=== PATIENT | male | born 1970 | race Two or more races ===

== ENCOUNTER 2025-05-12 17:39 | Inpatient (IN) | payer MEDICAID, OTHER ==
[~2025-05-12] VITALS: Ht 172.7 cm; Wt 79.8 kg
--- NOTE | 2025-05-12 18:24 | ED.PDOC ---
History of Present Illness HPI Comments 55 y/o M is [id number] for c/c fo nonradiating, left sided chest pain, shortness of breath, and nonproductive cough. Patient is a poor historian. He reports a history of CHF and NM in the past. Denies any nausea, vomiting, fever, chills, or further acute symptoms. Chief Complaint: Flu like Time Seen by MD: 18:10 Reviewed Notes: Nurses Notes, Medications, Allergies Allergies: Coded Allergies: NO KNOWN ALLERGIES (Unverified , 05/12/25) Information Source: Patient Mode of Arrival: Wheelchair Severity: Moderate Timing: Hours Duration: Since onset Prehospital treatment: None Past Medical History PAST MEDICAL HISTORY: CHF, NM All Other Systems: Reviewed and Negative (Comprehenesive review of systems are negative unless stated in HPI) Physical Exam General Appearance: Mild Distress, No Apparent Distress, Normal HEENT: Normal ENT Inspection, Pharynx Normal, TMs Normal Neck: Full Range of Motion, Non-Tender, Normal, Normal Inspection Respiratory: Chest Non-Tender, Lungs Clear, No Accessory Muscle Use, No Respiratory Distress, Normal Breath Sounds Cardiovascular: No Edema, No JVD, No Murmur, No Gallop, Normal Peripheral Pulses, Regular Rate/Rhythm Breast Exam: Deferred Gastrointestinal: No Organomegaly, Non Tender, No Pulsatile Mass, Normal Bowel Sounds, Soft Genitalia: Deferred Pelvic: Deferred Rectal: Deferred Extremities: No calf tenderness, Normal capillary refill, Normal inspection, Normal range of motion, Non-tender, No pedal edema Musculoskeletal : Apperance: Normal Neurologic: Alert, allied health instructor II-XII nml as Tested, No Motor Deficits, Normal Affect, Normal Mood, No Sensory Deficits Cerebellar Function: Normal Reflexes: Normal Skin: Dry, Normal Color, Warm Lymphatic: No Adenopathy Was a procedure done? Was a procedure done?: No Differential Dx Considerations may include: NM, PE, ACS, URI, PNA, viral, agnina, anxiety, among others X-Ray, Labs, Meds, VS Vital Signs Date Time Temp Pulse Resp B/P (MAP) Pulse Ox O2 Delivery O2 Flow Rate FiO2 05/12/25 19:24 119 05/12/25 17:46 Room Air* 0 21 05/12/25 17:43 98.0 120 17 115/77 98 98.0 Lab Test 05/12/25 18:37 Range/Units White Blood Count 7.5 4.4-10.8 10^3/uL Red Blood Count 4.19 L 4.5-5.90 10^6/uL Hemoglobin 12.7 L 13.5-17.5 g/dL Hematocrit 38.3 L 41.0-53.0 % Mean Corpuscular Volume 91.4 80.0-100.0 fL Mean Corpuscular Hemoglobin 30.4 28.0-32.0 pg Mean Corpuscular Hemoglobin Concent 33.3 32.0-36.0 g/dL Red Cell Distribution Width 17.7 H 11.8-14.3 % Platelet Count 122 L 140-450 10^3/uL Mean Platelet Volume 8.5 6.9-10.8 fL Neutrophils (%) (Auto) 76.7 37.0-80.0 % Lymphocytes (%) (Auto) 16.4 10.0-50.0 % Monocytes (%) (Auto) 6.6 0.0-12.0 % Eosinophils (%) (Auto) 0.0 0.0-7.0 % Basophils (%) (Auto) 0.3 0.0-2.0 % Neutrophils # (Auto) 5.8 1.6-8.6 10 ^3/uL Lymphocytes # (Auto) 1.2 0.4-5.4 10 ^3/uL Monocytes # (Auto) 0.5 0-1.3 10 ^3/uL Eosinophils # (Auto) 0 0-0.8 10 ^3/uL Basophils # (Auto) 0 0-0.2 10 ^3/uL Nucleated Red Blood Cells 0.3 % Sodium Level 133 L 136-145 mmol/L Potassium Level 4.3 3.5-5.1 mmol/L Chloride Level 97 L 98-107 mmol/L Carbon Dioxide Level 19 L 20-31 mmol/L Anion Gap 17 H 5-15 Blood Urea Nitrogen 40 H 9-23 mg/dL Creatinine 1.34 H 0.700-1.30 mg/dL Glomerular Filtration Rate Calc 63 >90 mL/min BUN/Creatinine Ratio 29.9 H 10.0-20.0 Serum Glucose 145 H 74-106 mg/dL Calcium Level 8.6 L 8.7-10.4 mg/dL Total Bilirubin 3.1 H 0.2-1.0 mg/dL Aspartate Amino Transferase (AST) 3441 H 13-40 U/L Alanine Aminotransferase (ALT) 1446 H 7-40 U/L Alkaline Phosphatase 107 46-116 U/L Troponin I High Sensitivity 57 *H </=54 ng/L Total Protein 7.2 5.7-8.2 g/dL Albumin 4.0 3.2-4.8 g/dL Time of 1ST Reevaluation: 18:40 Reevaluation 1ST: Unchanged Patient Education/Counseling: Diagnosis, Treatment Family Education/Counseling: Diagnosis, Treatment SEPSIS Sepsis Screen Date sepsis recognized/suspect: May 12, 2025 Time Sepsis recognized/suspect: 1739 Recent Procedure: No On Antibiotic Therapy: No Respiratory Rate >20: No Heart Rate >90: Yes Temp<36 C (96.8 F) or >38.3 C: No SBP <90 or MAP <65 mmHG: No New Acute Mental Status Change: No Is the patient on CPAP, BIPAP,: No Physician Orders Chest Xray 1 View (05/12/25 18:17) Acute Hepatitis Panel (05/12/25 19:39) Lactic Acid W/ Reflex Order (05/12/25 19:39) Blood Culture (05/12/25 19:39) Aspirin Tablet (05/12/25 19:45) Sodium Chloride 0.9% (05/12/25 19:45) Piperacillin-Tazob 3.375gm (Zosyn 3.375g (05/12/25 19:45) Vital Signs Date Time Temp Pulse Resp B/P (MAP) Pulse Ox O2 Delivery O2 Flow Rate FiO2 05/12/25 19:24 119 05/12/25 17:46 Room Air* 0 21 05/12/25 17:43 98.0 120 17 115/77 98 98.0 Laboratory Tests Test 05/12/25 18:37 White Blood Count 7.5 10^3/uL (4.4-10.8) Departure 1 Departure Time of Disposition: 19:41 Impression: Primary Impression: Acute coronary syndrome Additional Impressions: Transaminitis Acute renal injury Disposition: ADMITTED INPATIENT Admit to: Tele Condition: Guarded Discharged With: Self Comments 55-year-old male with cough and chest pain. His troponin is slightly elevated at 57. His liver function tests are quite elevated. His creatinine is elevated 1.38. I ordered some IV fluids, IV Zosyn antibiotics, aspirin. Patient will need to be admitted for supportive care and further workup. Critical Care Note Critical Care Time?: Yes (35 min-critical care time only) Critical care comment: Total critical care time: Approximately 36 minutes Due to a high probability of clinically significant, life threatening deterioration, the patient required my highest level of preparedness to intervene emergently and I personally spent this critical care time directly and personally managing the patient. This critical care time included obtaining a history; examining the patient; pulse oximetry; ordering and review of studies; arranging urgent treatment with development of a management plan; evaluation of patient's response to treatment; frequent reassessment; and, discussions with other providers. This critical care time was performed to assess and manage the high probability of imminent, life-threatening deterioration that could result in multi-organ failure. It was exclusive of separately billable procedures and treating other patients. Stability Stability form required: No Heart Score Heart Score: Heart Score Response (Comments) Value History Moderate Suspicious 1 EKG Repolarization Disturb 1 Age 45-64 1 Risk Factors 1 or 2 risk factors 1 Troponin 1-2 x's Normal limit 1 Total 5 I personally scribed for MARIA EUGENIA TOSCANO MD ([email or web address]) on 05/12/25 at 18:24. Electronically submitted by Raul Sanchez [email or web address]). MARIA EUGENIA TOSCANO MD May 12, 2025 18:24
[2025-05-12 18:53] LABS: Hematocrit 38.3 % (41.0-53.0); Hemoglobin 12.7 g/dL (13.5-17.5); Mean Corpuscular Hemoglobin 30.4 pg (28.0-32.0); Mean Corpuscular Volume 91.4 fL (80.0-100.0); Nucleated Red Blood Cells % 0.3 %
[2025-05-12 19:12] LABS: Albumin 4.0 g/dL (3.2-4.8); Alkaline Phosphatase 107 U/L (46-116); Anion Gap 17 (5-15); BUN/Creatinine Ratio 29.9 (10.0-20.0); Potassium 4.3 mmol/L (3.5-5.1); Total Protein 7.2 g/dL (5.7-8.2)
--- NOTE | 2025-05-12 19:23 | DVH ---
EXAM: XY CHEST XRAY 1 VIEW HISTORY: cough, chest pain TECHNIQUE: 1 view of the chest COMPARISON: None FINDINGS/IMPRESSION: LUNGS: No pleural effusion, consolidation, or pneumothorax. Question minimal volume overload MEDIASTINUM: Cardiomegaly. Left anterior chest cardiac device. BONES: No acute osseous abnormality. OTHER: None.
--- NOTE | 2025-05-12 19:26 | ECG ---
[facility] Test Date: 2025-05-12 Test Time: 19:24:30 Pat Name: HERMILA MCMAHAN Department: [facility] ED Patient ID: [id number] Room: 0298T Gender: M Nurse Monitoring: MASSIMO : 1970 Requested By: MARIA EUGENIA TOSCANO Order Number: [id number] Reading MD: Cirilo Kaiser Measurements Intervals [place] Rate: 119 P: 48 [place]: 95 QRS: -77 QRSD: 180 T: 100 QT: 388 QTc: 547 Interpretive Statements Atrial-sensed ventricular-paced rhythm No further analysis attempted due to paced rhythm Electronically Signed On 05-13-2025 13:56:59 PST by Cirilo Kaiser Please click the below link to view image of tracing.
[2025-05-12 19:36] LABS: Blood Urea Nitrogen 40 mg/dL (9-23); Carbon Dioxide 19 mmol/L (20-31); Chloride 97 mmol/L (98-107); Glucose 145 mg/dL (74-106); Sodium 133 mmol/L (136-145)
[2025-05-12 19:37] LABS: Alanine Aminotransferase 1446 U/L (7-40); Bilirubin, Total 3.1 mg/dL (0.2-1.0); Calcium 8.6 mg/dL (8.7-10.4)
[2025-05-12] MEDS: SODIUM CHLORIDE 0.9% 1,000 ML IV ONE (19:45)
[2025-05-12 20:50] LABS: Lactic Acid w/Reflex 4.5 mmol/L (0.4-2.0)
[2025-05-12] MEDS: PIPERACILLIN-TAZOB 3.375GM 100 ML IV ONE (21:30)
[2025-05-12] MEDS ORDERED: DEXTROSE (50%) 50ML SYRG IV PRN (22:15)
[2025-05-12] MEDS ORDERED: MORPHINE SULFATE INJ 2 MG/ml SYRG IV PRN (22:15)
[2025-05-12] MEDS ORDERED: NITROGLYCERIN 0.4 MG SL TAB SL PRN (22:15)
--- NOTE | 2025-05-12 23:13 | DVHHPRES ---
History of Present Illness Resident Creating Document: ASHLEY REEDER History of Present Illness Patient is a 55-year-old male with past medical history of CHF, AL, COPD and neuropathy, presented to [facility] ED with complaint of chest pain. The pain is described as pressure-like, nonradiating left-sided chest pain, associated with nausea, dizziness, shortness of breath, and a nonproductive cough. The patient admits to heavy alcohol use over the past 7 years, with his last binge drinking episode occurring 2 days ago. The patient is using 2 liters of home oxygen. On evaluation in the ED, patient is afebrile, tachycardic, other vitals are stable. Initial labs show significant troponin 57, AST 3441, ALT 1446, creatinine 1.34. Liver US shows coarsened heterogeneous liver with surface nodularity suggesting cirrhosis. The patient was started on CIWA protocol. Patient is admitted for further evaluation and management. Past Medical History CHF, AL, COPD, neuropathy Past Surgical History ICD placement, appendectomy Family History: None Past Social History Smoking: > 5 years. Alcohol: >7 years, heavily. Drug: Methamphetamine. Review of Systems Review of Systems Eyes: No Pain, No Vision change, No Conjunctivae inflammation, No Eyelid inflammation, No Other, No Redness ENT: No Ear pain, No Ear discharge, No Nose pain, No Nose discharge, No Nose congestion, No Mouth pain, No Mouth swelling, No Throat pain, No Throat swelling, No Other Cardiovascular: Chest Pain, No Palpitations, No Orthopnea, No Paroxysmal No Dyspnea, No Edema, No Lt Headedness, No Other Respiratory: Cough, No Dry, Shortness of breath, No SOB with exertion, No Wheezing, No Hemoptysis, No Pleuritic Pain, No Sputum, No Other Gastrointestinal: Nausea, No Vomiting, No Abdominal Pain, No Diarrhea, No Constipation, No Melena, No Hematochezia, No Other Genitourinary: No Dysuria, No Frequency, No Incontinence, No Hematuria, No Retention, No Other Musculoskeletal: No other, No neck pain, No shoulder pain, No arm pain, No back pain, No hand pain, No leg pain, No foot pain Skin: No Rash, No Lesions, No Jaundice, No Bruising, No Other Allergies: Coded Allergies: NO KNOWN ALLERGIES (Unverified , 05/12/25) Exam Vital Signs Vital Signs Date Time Temp Pulse Resp B/P (MAP) Pulse Ox O2 Delivery O2 Flow Rate FiO2 05/12/25 20:55 119 20 97 Room Air 05/12/25 20:55 97.9 114/81 (92) 97.9 05/12/25 17:46 0 21 Exam General Appearance: Cooperative. Well developed. Well nourished. NAD Head Exam: Normal inspection Neck Exam: Normal inspection. Non-tender. Normal alignment Pulmonary/Respiratory: Chest non-tender. Clear bilateral breath sounds, no crackles, no wheezing. Cardiovascular/Chest: Regular rate and rhythm. No murmurs. No JVD. Peripheral Pulses: 2+ Radial (R). 2+ Radial (L). 2+ Pedal (R). 2+ Pedal (L) Abdominal Exam: Normal bowel sounds. Soft. normal abdomen, no visible veins, Nontender. No hepatospenomegaly. No masses Ankle Exam: Negative ankle edema Lower extremities: Negative lower extremity edema Neuro/Mental Status: A&O x4. Coherent. Thoughts/Psych: Normal thought pattern. Appropriate mood and affect. Good judgement and insight Skin Exam: Normal inspection. Normal color. Warm. Dry Labs/Xrays Labs Test 05/12/25 21:56 05/12/25 19:55 05/12/25 18:37 Range/Units Lactic Acid Level 3.7 *H 0.4-2.0 mmol/L White Blood Count 7.5 4.4-10.8 10^3/uL Red Blood Count 4.19 L 4.5-5.90 10^6/uL Hemoglobin 12.7 L 13.5-17.5 g/dL Hematocrit 38.3 L 41.0-53.0 % Mean Corpuscular Volume 91.4 80.0-100.0 fL Mean Corpuscular Hemoglobin 30.4 28.0-32.0 pg Mean Corpuscular Hemoglobin Concent 33.3 32.0-36.0 g/dL Red Cell Distribution Width 17.7 H 11.8-14.3 % Platelet Count 122 L 140-450 10^3/uL Mean Platelet Volume 8.5 6.9-10.8 fL Neutrophils (%) (Auto) 76.7 37.0-80.0 % Lymphocytes (%) (Auto) 16.4 10.0-50.0 % Monocytes (%) (Auto) 6.6 0.0-12.0 % Eosinophils (%) (Auto) 0.0 0.0-7.0 % Basophils (%) (Auto) 0.3 0.0-2.0 % Neutrophils # (Auto) 5.8 1.6-8.6 10 ^3/uL Lymphocytes # (Auto) 1.2 0.4-5.4 10 ^3/uL Monocytes # (Auto) 0.5 0-1.3 10 ^3/uL Eosinophils # (Auto) 0 0-0.8 10 ^3/uL Basophils # (Auto) 0 0-0.2 10 ^3/uL Nucleated Red Blood Cells 0.3 % Sodium Level 133 L 136-145 mmol/L Potassium Level 4.3 3.5-5.1 mmol/L Chloride Level 97 L 98-107 mmol/L Carbon Dioxide Level 19 L 20-31 mmol/L Anion Gap 17 H 5-15 Blood Urea Nitrogen 40 H 9-23 mg/dL Creatinine 1.34 H 0.700-1.30 mg/dL Glomerular Filtration Rate Calc 63 >90 mL/min BUN/Creatinine Ratio 29.9 H 10.0-20.0 Serum Glucose 145 H 74-106 mg/dL Calcium Level 8.6 L 8.7-10.4 mg/dL Total Bilirubin 3.1 H 0.2-1.0 mg/dL Aspartate Amino Transferase (AST) 3441 H 13-40 U/L Alanine Aminotransferase (ALT) 1446 H 7-40 U/L Alkaline Phosphatase 107 46-116 U/L Troponin I High Sensitivity 57 *H </=54 ng/L Total Protein 7.2 5.7-8.2 g/dL Albumin 4.0 3.2-4.8 g/dL SEPSIS Sepsis Screen Date sepsis recognized/suspect: May 12, 2025 Time Sepsis recognized/suspect: 2103 Recent Procedure: No On Antibiotic Therapy: No Respiratory Rate >20: No Heart Rate >90: Yes Temp<36 C (96.8 F) or >38.3 C: No SBP <90 or MAP <65 mmHG: No New Acute Mental Status Change: No Is the patient on CPAP, BIPAP,: No Physician Orders Chest Xray 1 View (05/12/25 18:17) Acute Hepatitis Panel (05/12/25 19:39) Blood Culture (05/12/25 19:39) Admit (05/12/25 22:06) Allergies (05/12/25 22:06) Code Status (05/12/25 22:) Oxygen Per Hour (05/12/25 22:06) Hydrocodone-Acet 5/325mg Tab ([place] 5/32 (05/12/25 22:15) Enoxaparin Sodium (Lovenox) (05/13/25 10:00) Complete Blood Count (05/13/25 04:00) Comprehensive Metabolic Panel (05/13/25 04:00) Cardiac Diet-2gna,Lofat,Lochol (05/13/25 Breakfast) Echo 2d Mode Cardiac Dop (05/12/25 22:06) Condition: Fair (05/12/25 22:) Nitroglycerin Sublingual (Ntrostat Subli (05/12/25 22:15) Oxygen By Nasal Cannula (05/12/25 22:06) Stat Ekg For Chest Pain (05/12/25 22:) Notify Md Of Changes From Base (05/12/25 22:06) Power Shovel Operator Helper For 24 Hours (05/12/25 22:06) Emergency Dysrhythmia Protocol (05/12/25 22:) Rhythm Strips Once Every Shift (05/12/25 22:06) Morphine Sulfate Injection (05/12/25 22:15) B-Type Natriuretic Peptide (05/12/25 22:06) Urinalysis (05/12/25 22:06) Drug Screen (05/12/25 22:06) Aspirin Tablet (05/13/25 10:00) C-Reactive Protein (05/12/25 22:06) Erythrocyte Sedimentation Rate (05/12/25 22:06) Lactic Acid W/ Reflex Order (05/13/25 04:00) Troponin-I Hs (05/12/25 23:06) Magnesium (05/12/25 22:06) Ipratropium Medneb (Atrovent Medneb) (05/13/25 06:00) Covid19 Antigen Adali (05/12/25 ) Rapid Influenza A&B (05/12/25 22:06) Respiratory Culture W/ Gs (05/12/25 22:06) Urine Bacterial Culture (05/12/25 22:06) Glucose Blood (Accu-Chek Comfort Curve T (05/13/25 07:00) Mild Sliding Scale (05/13/25 07:00) Dextrose 50% Syringe (05/12/25 22:15) PTPTT (05/12/25 22:06) Abg W/ Co-Ox (05/12/25 22:06) Ct Ab Pel Wo Con-No Oral Or Iv (05/12/25 22:06) D-Dimer (05/12/25 22:06) Aspirin Tablet (05/12/25 22:15) Electrocardigram (05/12/25 22:06) Levalbuterol Hcl (Xopenex Medneb) (05/13/25 00:00) NS (05/12/25 22:15) Beta-Hydroxybutyrate (05/12/25 22:06) LIVER (05/12/25 22:06) Blood Alcohol (05/12/25 22:06) Osmolality, Serum (05/12/25 22:06) Bilirubin, Direct (05/12/25 22:06) Vital Signs Date Time Temp Pulse Resp B/P (MAP) Pulse Ox O2 Delivery O2 Flow Rate FiO2 05/12/25 20:55 119 20 97 Room Air 05/12/25 20:55 97.9 119 20 114/81 (92) 97 97.9 05/12/25 19:24 119 05/12/25 17:46 Room Air* 0 21 05/12/25 17:43 98.0 120 17 115/77 98 98.0 Laboratory Tests Test 05/12/25 18:37 05/12/25 19:40 05/12/25 21:56 White Blood Count 7.5 10^3/uL (4.4-10.8) Lactic Acid Level 4.5 mmol/L (0.4-2.0) *H 3.7 mmol/L (0.4-2.0) *H Medications Medications Dose Ordered Sig/Demetria Route Start Time Stop Time Status Last Admin Dose Admin Aspirin 81 mg ONCE ONCE PO 05/12/25 19:45 05/12/25 19:46 DC 05/12/25 19:45 81 MG Piperacillin Sod/ Tazobactam Sod 100 ml @ 100 mls/hr ONCE ONCE IV 05/12/25 19:45 05/12/25 20:44 DC 05/12/25 21:30 100 MLS/HR Sodium Chloride 1,000 ml @ 1,000 mls/hr Q1H ONCE IV 05/12/25 19:45 05/12/25 20:44 DC 05/12/25 19:45 1,000 MLS/HR Assessment/Plan Assessment/Plan Acute systolic/diastolic CHF exacerbation Unstable angina Troponin: 57 > 56 Lactic acid: 4.5 > 3.7 Echocardiogram ordered Chest/Abdomen/Pelvis CT : Bilateral ground-glass opacities may represent pulmonary edema. Moderate right and small left pleural effusion. Cardiomegaly Chest X-ray: Cardiomegaly. Left anterior chest cardiac device. Question minimal lung volume overload Lasix 60 MG IV once Lasix 40 MG IV bid Levalbuterol 1.25 MG q6h Ipratropium 0.5 MG q6h pain management with [place] 1 TAB PO q4h and morphine 2MG IV q30m prn Aspirin 81 MG PO once Aspirin 325 MG PO once Nitroglycerin sublingual 0.4 MG SL q5minp prn Magnesium 1g IV once BNP: 2014 Acute compensated/decompensated liver failure Liver cirrhosis Alcohol intoxication Alcohol hepatitis Transaminitis Chest/Abdomen/Pelvis CT : Small volume ascites in the abdomen/ pelvis. Small liver. CIWA score: 11 MELD score: 23 Maddrey score: 49.6, poor prognosis, consider starting prednisone Hepatic panel Liver US: Coarsened heterogeneous liver with surface nodularity suggesting cirrhosis. Ativan 1 mg IV q2h prn Thiamine 100 MG IV once pulmonary edema pleural effusion Chest/Abdomen/Pelvis CT : Bilateral ground-glass opacities may represent pulmonary edema. Moderate right and small left pleural effusion. Cardiomegaly Colonic diverticulosis without acute diverticulitis Chest/Abdomen/Pelvis CT : Colonic diverticulosis without acute diverticulitis. Small volume ascites in the abdomen/ pelvis. Small liver. Type 2 diabetes with hyperglycemia, uncontrolled Mild sliding scale Ruled out DVT Extremity venous study: No right or left femoropopliteal venous thrombosis. Diet: Cardiac DVT prophylaxis: Lovenox 40mg Goals of care: Full code, discussed for >30 minutes on 05/12/25 Plan discussed with patient Plan discussed with Dr. Haines Plan discussed with: Patient My Orders Orders - ASHLEY REEDER RESIDENT Procedure Category Date Status Time Admit ADMIT 05/12/25 Transmitted 22:06 Allergies AMIE 05/12/25 In Process 22:06 Code Status CODE 05/12/25 Transmitted 22:06 Oxygen Per Hour RT 05/12/25 Transmitted 22:06 Hydrocodone-Acet PHA 05/12/25 Transmitted 5/325mg Tab ([place] 22:15 Enoxaparin Sodium PHA 05/13/25 Transmitted (Lovenox) 10:00 Complete Blood Count LAB 05/13/25 Verified 04:00 Comprehensive LAB 05/13/25 Verified Metabolic Panel 04:00 Cardiac DIET 05/13/25 Transmitted Diet-2gna,Lofat,Lochol Breakfast Echo 2d Mode Cardiac US 05/12/25 Transmitted DOP 22:06 Condition: Fair AMIE 05/12/25 In Process 22:06 Nitroglycerin PHA 05/12/25 Transmitted Sublingual (Ntrostat 22:15 Oxygen By Nasal RT 05/12/25 Transmitted Cannula 22:06 Stat Ekg For Chest AMIE 05/12/25 In Process Pain 22:06 Notify Of Changes [facility] 05/12/25 Transmitted From Base 22:06 Power Shovel Operator Helper For [facility] 05/12/25 Transmitted 24 Hours 22:06 Emergency Dysrhythmia [facility] 05/12/25 Transmitted Protocol 22:06 Rhythm Strips Once AMIE 05/12/25 Transmitted Every Shift 22:06 Morphine Sulfate PHA 05/12/25 Transmitted Injection 22:15 B-Type Natriuretic LAB 05/12/25 Transmitted Peptide 22:06 Urinalysis LAB 05/12/25 Transmitted 22:06 Drug Screen LAB 05/12/25 Transmitted 22:06 Aspirin Tablet PHA 05/13/25 Transmitted 10:00 C-Reactive Protein LAB 05/12/25 Transmitted 22:06 Erythrocyte LAB 05/12/25 Transmitted Sedimentation Rate 22:06 Lactic Acid W/ Reflex LAB 05/13/25 Verified Order 04:00 Troponin-I Hs LAB 05/12/25 Transmitted 23:06 Magnesium LAB 05/12/25 Transmitted 22:06 Ipratropium Medneb PHA 05/13/25 Transmitted (Atrovent Medneb) 06:00 Covid19 Antigen Adali LAB 05/12/25 Transmitted Rapid Influenza A&B LAB 05/12/25 Transmitted 22:06 Respiratory Culture MARY ELLEN 05/12/25 Transmitted W/ Gs 22:06 Urine Bacterial MARY ELLEN 05/12/25 Transmitted Culture 22:06 Glucose Blood PHA 05/13/25 Transmitted (Accu-Chek Comfort 07:00 Mild Sliding Scale PHA 05/13/25 Transmitted 07:00 Dextrose 50% Syringe PHA 05/12/25 Transmitted 22:15 PTPTT LAB 05/12/25 Transmitted 22:06 Abg W/ Co-Ox RT 05/12/25 Transmitted 22:06 Ct Ab Pel Wo Con-No CT 05/12/25 Transmitted Oral Or Iv 22:06 D-Dimer LAB 05/12/25 Transmitted 22:06 Aspirin Tablet PHA 05/12/25 Transmitted 22:15 Electrocardigram EKG 05/12/25 Transmitted 22:06 Levalbuterol Hcl PHA 05/13/25 Transmitted (Xopenex Medneb) 00:00 NS PHA 05/12/25 Transmitted 22:15 Beta-Hydroxybutyrate LAB 05/12/25 Transmitted 22:06 LIVER US 05/12/25 Transmitted 22:06 Blood Alcohol LAB 05/12/25 Transmitted 22:06 Osmolality, Serum LAB 05/12/25 Transmitted 22:06 Bilirubin, Direct LAB 05/12/25 Transmitted 22:06 Date of Service: May 12, 2025 Billing Provider: CHECO HAINES MD Common Visit Codes: 13157-[id number] INP/OBS CARE (HIGH) Secondary Visit Codes: 24213-[id number] CARE PLAN 30 MINUTES ASHLEY REEDER RESIDENT May 12, 2025 23:13
[2025-05-12 23:42] LABS: INR 2.26 (0.9-1.15); Partial Thromboplastin Time 36.4 SEC (24.5-34.5); Prothrombin Time 22.1 sec (9.3-11.8)
[2025-05-13] VITALS (22 sets, daily range): BP systolic 110–125; BP diastolic 81–95; PULSE 89–118; RESP 17–22; TEMP 97.6–98; O2SAT 92–100
[2025-05-13 00:17] LABS: Magnesium 1.7 mg/dL (1.6-2.6)
[2025-05-13 00:20] LABS: Bilirubin, Direct 1.6 mg/dL (<0.3)
[2025-05-13 00:24] LABS: COVID19 ANTIGEN SOFIA FIA NEGATIVE (NEGATIVE)
[2025-05-13] MEDS: LEVALBUTEROL HCL 1.25 MG/3 ML NEB NEB SCH (00:26)
--- NOTE | 2025-05-13 00:43 | DVH ---
INDICATION: transaminitis TECHNIQUE: Multiple real-time sonographic images were obtained of the right upper quadrant. COMPARISON: XY CHEST XRAY 1 VIEW on DOS: 05/12/25 FINDINGS: Liver is normal in size measuring 13.8 cm with coarsened heterogeneous echotexture and surface nodula rity. The common duct measures 0.4 mm. The gallbladder is without evidence of stone or sludge. The gallbladder wall measures 0.2 mm and is within normal limits. The right kidney measures 10.5 cm. The right kidney is normal in contour, size, and shape. The ech ogenicity is normal. There is no hydronephrosis. The pancreas is not well visualized due to overlying bowel gas. Small volume of ascites. Bilateral pleural effusions. IMPRESSION: Coarsened heterogeneous liver with surface nodularity suggesting cirrhosis.
[2025-05-13] MEDS: SODIUM CHLORIDE 0.9% 500 ML IV ONE (00:45)
[2025-05-13] MEDS: LEVALBUTEROL HCL 1.25 MG/3 ML NEB ONE (01:14)
--- NOTE | 2025-05-13 01:28 | DVH ---
Bilateral lower extremity venous duplex Clinical History: blood clots Comparison: CT CT CHEST/AB/PL W CON- IV ONLY on DOS: 05/13/25, XY CHEST XRAY 1 VIEW on DOS: 05/12/25 Technique: Duplex Doppler evaluation of the deep venous systems of both lower extremities from the common femora l veins to the popliteal veins including color Doppler and spectral/pulsed waveform analysis was perf ormed. Findings: RIGHT SIDE: The common femoral vein demonstrates appropriate compressibility and waveform variability. There is compressibility/patency of the great saphenous vein at the proximal thigh. The femoral vein demonstrates appropriate compressibility and waveform variability. The deep femoral vein demonstrates appropriate compressibility and waveform variability. The popliteal vein demonstrates appropriate compressibility and waveform variability. There is normal compressibility at the tibioperoneal trunk. LEFT SIDE: The common femoral vein demonstrates appropriate compressibility and waveform variability. There is compressibility/patency of the great saphenous vein at the proximal thigh. The femoral vein demonstrates appropriate compressibility and waveform variability. The deep femoral vein demonstrates appropriate compressibility and waveform variability. The popliteal vein demonstrates appropriate compressibility and waveform variability. There is normal compressibility at the tibioperoneal trunk. Impression: No right or left femoropopliteal venous thrombosis.
[2025-05-13] MEDS: IOHEXOL 350 MG/ML 100ML IJ ONE (02:13)
[2025-05-13] MEDS ORDERED: FUROSEMIDE 40 MG/4 ML VIAL IV ONE (02:30)
[2025-05-13] MEDS: FUROSEMIDE 100 MG/10ML VIAL IV ONE (02:44)
[2025-05-13] MEDS ORDERED: LORazepam 2MG/ML-1ML VIAL IV PRN (03:00)
[2025-05-13] MEDS ORDERED: THIAMINE HCL 100 MG TAB PO ONE (03:00)
[2025-05-13] MEDS ORDERED: FOLIC ACID 1 MG TAB PO ONE (03:00)
[2025-05-13] MEDS ORDERED: MULTIPLE VITAMIN TAB PO ONE (03:00)
[2025-05-13 04:46] LABS: Opiate Scree,Urine Neg (NEGATIVE)
[2025-05-13 05:17] LABS: Barbiturate Scree,Urine Neg (NEGATIVE); Phencyclidine Screen, Urine Neg (NEGATIVE)
[2025-05-13 05:18] LABS: Amphetamine Screen, Urine Pos (NEGATIVE); Benzodiazephine Screen, Urine Neg (NEGATIVE); Cannabinoid Screen, Urine Neg (NEGATIVE); Cocaine Screen, Urine Neg (NEGATIVE)
[2025-05-13 06:13] LABS: Urine Protein, UAD TRACE (Negative)
[2025-05-13] MEDS: MAGNESIUM SULFATE 1GM/100ML 100 ML IV ONE (06:14)
[2025-05-13] MEDS: InsuLIN REG 1unit/0.01ml Soln (100units/ml) SC SCH ×2 (06:22→12:15)
--- NOTE | 2025-05-13 06:26 | DVH ---
Exam: CT CT CHEST/AB/PL W CON- IV ONLY History: Chest pain. Comparison Study: XY CHEST XRAY 1 VIEW on DOS: 05/12/25. Technique: Multidetector spiral CT of the chest, abdomen and pelvis was performed from lower neck to pubic symphysis. Intravenous contrast was administered during this examination. Portal venous imaging was obtained. Coronal and sagittal multiplanar reformats were performed by the technologist on a separate workstation. Radiation Dose : 1. Chest/Abdomen/Pelvis: CTDIvol 29.57 mGy, DLP 1715.26 mGy*cm. Findings: Lower neck: Unremarkable thyroid. Lungs: Bilateral ground-glass opacities. Central airways: Patent. Pleura: Moderate right and small left pleural effusion. Heart/Vascular Structures: The heart is enlarged. No pericardial effusion. There are coronary artery calcifications. There is a pacemaker / AICD with leads in appropriate position. Lymph Nodes: No adenopathy. Chest wall: Soft tissue edema in the chest wall. Liver: The liver is small. No focal lesions. Diffusely hypoattenuating liver parenchyma consistent with hepatic steatosis. Normal hepatic vascular enhancement. Gallbladder and Biliary Tree: The gallbladder is unremarkable. No biliary ductal dilatation. Spleen: Unremarkable Pancreas: The pancreas is normal in appearance without focal lesions or abnormal enhancement. Adrenal Glands: Unremarkable. Kidneys: Kidneys demonstrate normal symmetric enhancement without focal lesions, calculi or hydronephrosis. Bladder: Unremarkable Bowel: The stomach is grossly normal in appearance. The small bowel is normal in caliber. No dilatation or mucosal thickening. Colonic diverticulosis without acute diverticulitis. No acute appendicitis. Peritoneum: No pneumoperitoneum. Small volume ascites. Lymphadenopathy: No mesenteric, retroperitoneal or periportal lymphadenopathy. Abdominal Wall and Mesentery: Diffuse body wall anasarca.. Vasculature: The visualized abdominal aorta is normal in size and caliber. Abdominal and pelvic vessels demonstrate normal enhancement. Diffuse vascular calcifications Pelvic Organs: Unremarkable Musculoskeletal: There is subacute to chronic appearing left posterior 9th and 10th rib fractures. IMPRESSION: 1. Bilateral ground-glass opacities may represent pulmonary edema. 2. Moderate right and small left pleural effusion. 3. Cardiomegaly. 4. Diffuse body wall anasarca. 5. Colonic diverticulosis without acute diverticulitis. 6. Small volume ascites in the abdomen/ pelvis. 7. Small liver. Correlation with LFTs is recommended. Cirrhosis is not excluded.
[2025-05-13] MEDS: THIAMINE 100mg/ml INJ (200mg/2ml VIAL) IV ONE (06:27)
[2025-05-13] MEDS: ACCU-CHEK COMFORT CURVE STRIP VI SCH (06:31)
[2025-05-13] MEDS ORDERED: METF-490 PO (06:41)
[2025-05-13] MEDS ORDERED: EMPA1TAB PO (06:42)
[2025-05-13] MEDS ORDERED: ERGO2000 PO (06:42)
[2025-05-13] MEDS ORDERED: LISI2.5T47 PO (06:42)
[2025-05-13] MEDS ORDERED: FOLITAB22 PO (06:43)
[2025-05-13] MEDS ORDERED: FURO40TA4 PO (06:43)
[2025-05-13] MEDS ORDERED: GABA300T4 PO (06:43)
[2025-05-13] MEDS ORDERED: DIGO0.12 PO (06:44)
[2025-05-13] MEDS ORDERED: NORT25CA PO (06:45)
[2025-05-13] MEDS ORDERED: ATOR40TA52 PO (06:45)
[2025-05-13] MEDS ORDERED: SPIR25TA PO (06:45)
[2025-05-13] MEDS ORDERED: CARV12.544 PO (06:46)
[2025-05-13] MEDS ORDERED: ALBUAER3 IN (06:46)
[2025-05-13] MEDS: IPRATROPIUM BROM 0.5 MG/2.5ML INH SOL NEB SCH (06:48)
[2025-05-13 07:33] LABS: Hematocrit 37.7 % (41.0-53.0); Hemoglobin 12.7 g/dL (13.5-17.5); Mean Corpuscular Hemoglobin 30.5 pg (28.0-32.0); Mean Corpuscular Volume 90.2 fL (80.0-100.0); Nucleated Red Blood Cells % 0.2 %
[2025-05-13 07:44] LABS: Alkaline Phosphatase 108 U/L (46-116); Anion Gap 11 (5-15); BUN/Creatinine Ratio 24.6 (10.0-20.0); Carbon Dioxide 26 mmol/L (20-31); Potassium 3.7 mmol/L (3.5-5.1)
[2025-05-13 07:45] LABS: Blood Urea Nitrogen 29 mg/dL (9-23); Calcium 8.6 mg/dL (8.7-10.4); Chloride 97 mmol/L (98-107); Glucose 158 mg/dL (74-106); Sodium 134 mmol/L (136-145); Total Protein 7.4 g/dL (5.7-8.2)
[2025-05-13 07:46] LABS: Albumin 3.9 g/dL (3.2-4.8)
[2025-05-13 07:51] LABS: Lactic Acid w/Reflex 2.1 mmol/L (0.4-2.0)
[2025-05-13 07:59] LABS: Alanine Aminotransferase 1150 U/L (7-40); Bilirubin, Total 3.4 mg/dL (0.2-1.0)
[2025-05-13] MEDS: ENOXAPARIN SOD 40 MG/0.4 ML SYRINGE SC SCH (09:00)
--- NOTE | 2025-05-13 10:26 | ECG ---
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
[2025-05-13] MEDS: FUROSEMIDE 40 MG/4 ML VIAL IV SCH (14:30)
[2025-05-13] MEDS: D5W/SOD CHL 0.45% 1,000 ML IV SCH (14:31)
[2025-05-13] MEDS: methylPREDNISolone SOD SUCC 40 MG/ML VL IV SCH (14:31)
[2025-05-13] MEDS: HYDROcodone-ACET 5/325MG TAB PO PRN (14:47)
--- NOTE | 2025-05-13 16:58 | DVHCONRES ---
Date Seen: May 13, 2025 Resident Creating Document: JHAJJ,SARPUNEET RESIDENT Referring Physician Dr. Keith Reason for Consultation Transaminitis History of Present Illness Patient is a 55-year-old male with past medical history of CHF, RI, COPD and neuropathy, presented to [facility] ED with complaint of chest pain. The pain is described as pressure-like, nonradiating left-sided chest pain, associated with nausea, dizziness, shortness of breath, and a nonproductive cough. The patient admits to heavy alcohol use over the past 7 years, with his last binge drinking episode occurring 2 days ago. The patient is using 2 liters of home oxygen. On evaluation in the ED, patient is afebrile, tachycardic, other vitals are stable. Initial labs show significant troponin 57, AST 3441, ALT 1446, creatinine 1.34. Liver US shows coarsened heterogeneous liver with surface nodularity suggesting cirrhosis. The patient was started on CIWA protocol. Patient is admitted for further evaluation and management. Past Medical History CHF, RI, COPD, neuropathy Past Surgical History ICD placement, appendectomy Family History: Patient reports no known family medical history. Family History Noncontributory Social History Patient reports to be drinking about 2 bottles of liquor every day for many years, methamphetamine use Allergies: Coded Allergies: NO KNOWN ALLERGIES (Unverified , 05/12/25) Home Meds Reported Medications Albuterol Sulfate (VENTOLIN MDI) 90 Mcg Ih, 90 MCG IN, INH 05/13/25 Carvedilol (Carvedilol) 12.5 Mg Tab, 1 TAB PO BID, #180 TAB 1 Refill 05/13/25 Nortriptyline Hcl (PAMELOR CAPSULE) 25 Mg Cp, 2 CAP PO QPM, #30 CAP 3 Refills 05/13/25 Atorvastatin Calcium (ATORVASTATIN CALCIUM) 40 Mg Tab, 1 TAB PO DAILY, #30 TAB 5 Refills 05/13/25 Spironolactone (Aldactone) 25 Mg Tab, 1 TAB PO DAILY, #90 TAB 1 Refill 05/13/25 Digoxin (Digoxin) 125 Mcg Tab, 125 MCG PO DAILY, TAB 05/13/25 Furosemide (Furosemide) 40 Mg Tab, 1 TAB PO DAILY, #30 TAB 5 Refills 05/13/25 Folic Ahkx-Wrrwmllant-Lqxilzji (Folbic) Tab, 1 TAB PO DAILY, #90 TAB 1 Refill 05/13/25 Gabapentin (Once-Daily) (Gabapentin) 300 Mg Tab, 300 MG PO DAILY, TAB 05/13/25 Ergocalciferol (VITAMIN D2) 2,000 Unit Tab, 93094 UNIT PO, TAB 05/13/25 Empagliflozin (Jardiance) 10 Mg Tab, 10 MG PO DAILY, TAB 05/13/25 Lisinopril (Lisinopril) 2.5 Mg Tab, 1 TAB PO DAILY, #30 TAB 5 Refills 05/13/25 Metformin Hydrochloride (METFORMIN HCL ER) 1,000 Mg Tab, 1 TAB PO DAILY, #90 TAB 1 Refill 05/13/25 Current Medications Current Medications Medications (Trade) Dose Ordered Sig/Demetria Route PRN Reason Start Time Stop Time Status Last Admin Acetaminophen/ Hydrocodone Bitart ([place] 5/325MG Tab) 1 tab Q4HP PRN PO MODERATE PAIN (4-6 PAIN SCALE) 05/12/25 22:15 05/13/25 14:47 Enoxaparin Sodium (Lovenox) 40 mg DAILY SC 05/13/25 10:00 05/13/25 09:00 Nitroglycerin (Ntrostat Sublingual) 0.4 mg Q5MINP PRN SL FOR CHEST PAIN 05/12/25 22:15 Morphine Sulfate 2 mg Q30M PRN IV FOR CHEST PAIN 05/12/25 22:15 Aspirin 81 mg DAILY PO 05/13/25 10:00 05/13/25 09:00 Ipratropium [place] (Atrovent Medneb) 0.5 mg Q6HWA NEB 05/13/25 06:00 05/13/25 11:43 Diagnostic Test (Pha) (Accu-Chek Comfort Curve T) 1 strip ACHS 05/13/25 07:00 05/13/25 11:11 Insulin Human Regular (InsuLIN R) ACHS SC 05/13/25 07:00 05/13/25 14:39 DC 05/13/25 11:15 Dextrose 50 ml UD PRN IV Blood Sugar LESS THAN 60 05/12/25 22:15 Levalbuterol HCl (Xopenex Medneb) 1.25 mg Q6HR NEB 05/13/25 00:00 05/13/25 11:43 Furosemide (Lasix Injection) 40 mg BIDD IV 05/13/25 18:00 05/13/25 12:07 DC Lorazepam (Ativan Inj) 1 mg Q2HPRN PRN IV ETOH-SEE PROTOCOL 05/13/25 03:00 Famotidine (Pepcid Injection) 20 mg Q12HR IV 05/13/25 22:00 Furosemide (Lasix Injection) 40 mg DAILY IV 05/13/25 12:15 05/13/25 14:30 Spironolactone (Aldactone) 50 mg DAILY PO 05/14/25 10:00 Methylprednisolone Sodium Succinate (Solu Medrol) 40 mg DAILY IV 05/13/25 12:15 05/13/25 14:31 Thiamine HCl 100 mg DAILY PO 05/14/25 10:00 Folic Acid 1 mg DAILY PO 05/14/25 10:00 Dextrose/Sodium Chloride 1,000 ml @ 30 mls/hr Q24H IV 05/13/25 12:15 05/13/25 14:31 Insulin Human Regular (InsuLIN R) Q6HR SC 05/13/25 12:15 Review of Systems Denies any abdominal pain nausea or vomiting Reports having mild acidity and reflux Reported having bowel movement, no blood in the stool No hematemesis, melena or hematochezia H&H is stable Elevated LFTs with the AST to ALT more than 2:1 Initially lactic acid was elevated now decreasing Elevated PT INR Liver ultrasound shows coarsened heterogeneous liver with surface nodularity suggesting cirrhosis CT chest abdomen pelvis shows moderate right and small left pleural cardiomegaly, diffuse body wall anasarca, small volume ascites Vital Signs Vital Signs Date Time Temp Pulse Resp B/P (MAP) Pulse Ox O2 Delivery O2 Flow Rate FiO2 05/13/25 14:30 117/80 05/13/25 12:41 97.6 116 17 99 97.6 05/13/25 11:44 Nasal Cannula* 4 36 Physical Exam Gen - no pallor, positive scleral icterus Skin - Patients skin is warm and dry. HEENT - normocephalic, atraumatic, dry mucous membranes. Neck - supple, no lymphadenopathy Pulmonary - B/L diffuse rales cardiovascular - regular S1,S2 heard GI - soft nontender abdomen. Flank fullness Bowel sounds normoactive. Neurological - Patient is alert and oriented x4 and is following commands, no weakness Labs/Diagnostic Data Labs Test 05/13/25 11:10 05/13/25 06:03 05/13/25 02:47 05/13/25 00:10 Range/Units POC Glucose 133 H 70-106 mg/dl White Blood Count 5.3 # 4.4-10.8 10^3/uL Red Blood Count 4.18 L 4.5-5.90 10^6/uL Hemoglobin 12.7 L 13.5-17.5 g/dL Hematocrit 37.7 L 41.0-53.0 % Mean Corpuscular Volume 90.2 80.0-100.0 fL Mean Corpuscular Hemoglobin 30.5 28.0-32.0 pg Mean Corpuscular Hemoglobin Concent 33.8 32.0-36.0 g/dL Red Cell Distribution Width 17.4 H 11.8-14.3 % Platelet Count 117 L 140-450 10^3/uL Mean Platelet Volume 8.7 6.9-10.8 fL Neutrophils (%) (Auto) 81.6 H 37.0-80.0 % Lymphocytes (%) (Auto) 11.4 10.0-50.0 % Monocytes (%) (Auto) 6.5 0.0-12.0 % Eosinophils (%) (Auto) 0.1 0.0-7.0 % Basophils (%) (Auto) 0.4 0.0-2.0 % Neutrophils # (Auto) 4.4 1.6-8.6 10 ^3/uL Lymphocytes # (Auto) 0.6 0.4-5.4 10 ^3/uL Monocytes # (Auto) 0.3 0-1.3 10 ^3/uL Eosinophils # (Auto) 0 0-0.8 10 ^3/uL Basophils # (Auto) 0 0-0.2 10 ^3/uL Nucleated Red Blood Cells 0.2 % Sodium Level 134 L 136-145 mmol/L Potassium Level 3.7 3.5-5.1 mmol/L Chloride Level 97 L 98-107 mmol/L Carbon Dioxide Level 26 20-31 mmol/L Anion Gap 11 5-15 Blood Urea Nitrogen 29 #H 9-23 mg/dL Creatinine 1.18 0.700-1.30 mg/dL Glomerular Filtration Rate Calc 74 >90 mL/min BUN/Creatinine Ratio 24.6 H 10.0-20.0 Serum Glucose 158 H 74-106 mg/dL Hemoglobin A1c 6.7 H <5.7 % A1C Lactic Acid Level 2.1 *H 0.4-2.0 mmol/L Calcium Level 8.6 L 8.7-10.4 mg/dL Total Bilirubin 3.4 H 0.2-1.0 mg/dL Aspartate Amino Transferase (AST) 1885 H 13-40 U/L Alanine Aminotransferase (ALT) 1150 H 7-40 U/L Alkaline Phosphatase 108 46-116 U/L Total Protein 7.4 5.7-8.2 g/dL Albumin 3.9 3.2-4.8 g/dL Lipase 35 12-53 U/L Urine Color Yellow Yellow Urine Clarity Clear Clear Urine pH 6.0 5.0-9.0 Urine Specific [place] 1.038 H 1.001-1.035 Urine Protein Trace H Negative Urine Ketones Trace Negative Urine Blood Negative Negative /uL Urine Nitrite Negative Negative Urine Bilirubin Negative Negative Urine Urobilinogen 2 H Negative mg/dL Urine Leukocyte Esterase Negative Negative /uL Urine RBC None seen 0 - 3 /hpf Urine Microscopic WBC < 1 0-3 /HPF Urine Squamous Epithelial Cells Few <5 /hpf Urine Bacteria None seen None Seen /hpf Urine Glucose Normal Normal mg/dL Urine Opiates Screen Neg NEGATIVE Urine Fentanyl Screen Neg NEGATIVE Urine Barbiturates Screen Neg NEGATIVE Urine Phencyclidine Screen Neg NEGATIVE Urine Amphetamines Screen Pos NEGATIVE Urine Benzodiazepines Screen Neg NEGATIVE Urine Cocaine Screen Neg NEGATIVE Urine Cannabinoids Screen Neg NEGATIVE Blood Gas Specimen Type Venous Blood Gas Sample Site Other Blood Gas Patient Temperature 37.0 Arterial Blood Date Drawn [id number] Sunny Test N/a Venous Blood pH 7.385 7.320-7.430 Venous Blood pCO2 at Patient Temp 31.0 L 38.0-54.0 mmHg Venous Blood pO2 at Patient Temp < 36.5 23.0-48.0 mmHg Venous Blood HCO3 18.1 L 22.0-29.0 mmol/L Venous Blood Base Excess -5.6 L -2.0-3.0 mmol/L Blood Gas Liter Flow 3.00 Blood Gas Modality Nasal cannula FiO2 % 32.0 Blood Gas Critical Value Read Back Yes Test 05/12/25 23:35 05/12/25 21:56 05/12/25 19:55 05/12/25 18:37 Range/Units Influenza Type A Antigen Negative Negative Influenza Type B Antigen Negative Negative SARS-CoV-2 Antigen (Rapid) Negative NEGATIVE Prothrombin Time 22.1 H 9.3-11.8 sec Prothrombin Time INR 2.26 H 0.9-1.15 Activated Partial Thromboplast Time 36.4 H 24.5-34.5 SEC D-Dimer, Quantitative 6.87 H 0.0-0.49 mg/L FEU Magnesium Level 1.7 1.6-2.6 mg/dL Direct Bilirubin 1.6 H <0.3 mg/dL Troponin I High Sensitivity 56 *H </=54 ng/L C-Reactive Protein High Sensitivity 2.95 H <1.0 mg/dL B-Type Natriuretic Peptide 2014.52 0-100 pg/mL Plasma/Serum Blood Alcohol 36.3 H <10 mg/dL Erythrocyte Sedimentation Rate 7 0-20 mm/hr Serum Osmolality 315 H 278-298 mOsm/kg Beta-Hydroxybutyric Acid 0.379 < 0.4 mmol/L Microbiology Date/Time Source Procedure Growth Status 05/13/25 08:00 Nose MRSA Screen - Final Complete Assessment Alcoholic hepatitis ( MDF 49.9 ) Probable liver cirrhosis ( MELD Na 24) Fluid overload likely d/t CHF exacerbation/decompensated liver cirrhosis Hyperbilirubinemia JULIANNA likely hemodynamically mediated NSTEMI likely type 2 Acute on chronic systolic heart failure Methamphetamine use Plan - continue with diuresis with Lasix and spironolactone - steroids given high MDF for alcoholic hepatitis - advised to strictly avoid alcohol - monitor LFTs - thiamine - PUD prophylaxis Plan discussed with Dr. Coleman Plan discussed with: Patient MASHA HAMILTON RESIDENT May 13, 2025 16:57
[2025-05-13] MEDS ORDERED: FUROSEMIDE 40 MG/4 ML VIAL IV SCH (18:00)
--- NOTE | 2025-05-13 19:31 | DVHPNRES ---
Progress Note Date Seen: May 13, 2025 Resident Creating Document: NASIM RED RESIDENT Medical Necessity Reason Pt with a Central, PICC or Fol: No Subjective Review of Systems David Mason is a 55-year old male past medical history of CHF, [place], COPD on 2 L oxygen at home, type 2 DM with insulin usage and neuropathy who presented to the ED with the chief complaint of chest pain. The patient described the pain as pressure-like, left-sided, nonradiating, associated with nausea, dizziness, shortness of breath and a nonproductive cough. Patient mentioned that his shortness of breath increased on lying down. The patient admits to heavy alcohol use with last 7 years with his last binge drinking episode 2 days ago. He denies any fever,chills or dizziness . Past medical history: CHF, [place], COPD on 2 L oxygen at home, and neuropathy Past surgical history: ICD placement, appendectomy Social & Personal history: Lives at home with family Smokin-10 years 1 pack per day Alcohol: Heavy alcohol use for the last 7 years Drugs: Methamphetamine use Allergies: No known allergies Patient seen and examined at bedside. Patient is alert and oriented to time, place person and responding to all questions. Eyes: No Pain, No Vision change, No Conjunctivae inflammation, No Eyelid inflammation, No Redness ENT: No Ear pain, No Ear discharge, No Nose pain, No Nose discharge, No Nose congestion, No Mouth pain, No Mouth swelling, No Throat pain, No Throat swelling Cardiovascular: No Chest Pain, No Palpitations, No Orthopnea, No Paroxysmal No Dyspnea, No Edema, No Lt Headedness Respiratory: Cough, No Dry, Shortness of breath, SOB with exertion, No Wheezing, No Hemoptysis, No Pleuritic Pain, No Sputum Gastrointestinal: No Nausea, No Vomiting, No Abdominal Pain, No Diarrhea, No Constipation, No Melena, No Hematochezia Genitourinary: No Dysuria, No Frequency, No Incontinence, No Hematuria, No Retention Objective vital signs Vital Sign Date Time Temp Pulse Resp B/P (MAP) Pulse Ox O2 Delivery O2 Flow Rate FiO2 05/13/25 19:16 99 Nasal Cannula* 2 28 05/13/25 19:13 108 18 05/13/25 17:00 97.9 118/90 (99) 97.9 Total Intake and Output 05/12/25 05/12/2505/13/25 15:00 23:00 07:00 Intake Total 240 ml Balance 240 ml medications Current Medications Medications Dose Ordered Sig/Demetria Route Start Time Stop Time Status Last Admin Dose Admin Acetaminophen/ Hydrocodone Bitart 1 tab Q4HP PRN PO 05/12/25 22:15 05/13/25 14:47 1 TAB Enoxaparin Sodium 40 mg DAILY SC 05/13/25 10:00 05/13/25 09:00 40 MG Nitroglycerin 0.4 mg Q5MINP PRN SL 05/12/25 22:15 Morphine Sulfate 2 mg Q30M PRN IV 05/12/25 22:15 Aspirin 81 mg DAILY PO 05/13/25 10:00 05/13/25 09:00 81 MG Ipratropium [place] 0.5 mg Q6HWA NEB 05/13/25 06:00 05/13/25 19:11 0.5 MG Diagnostic Test (Pha) 1 strip ACHS 05/13/25 07:00 05/13/25 11:11 1 STRIP Dextrose 50 ml UD PRN IV 05/12/25 22:15 Levalbuterol HCl 1.25 mg Q6HR NEB 05/13/25 00:00 05/13/25 19:12 1.25 MG Lorazepam 1 mg Q2HPRN PRN IV 05/13/25 03:00 Famotidine 20 mg Q12HR IV 05/13/25 22:00 Furosemide 40 mg DAILY IV 05/13/25 12:15 05/13/25 14:30 40 MG Spironolactone 50 mg DAILY PO 05/14/25 10:00 Methylprednisolone Sodium Succinate 40 mg DAILY IV 05/13/25 12:15 05/13/25 14:31 40 MG Thiamine HCl 100 mg DAILY PO 05/14/25 10:00 Folic Acid 1 mg DAILY PO 05/14/25 10:00 Dextrose/Sodium Chloride 1,000 ml @ 30 mls/hr Q24H IV 05/13/25 12:15 05/13/25 14:31 30 MLS/HR Insulin Human Regular Q6HR SC 05/13/25 12:15 05/13/25 17:25 3 UNITS Examination General Appearance: Cooperative. Well developed. Well nourished. NAD Head Exam: Normal inspection Neck Exam: Normal inspection. Non-tender. Normal alignment Pulmonary/Respiratory: Chest non-tender. Clear bilateral breath sounds, no crackles, no wheezing. Cardiovascular/Chest: Regular rate and rhythm. No murmurs. No JVD. Peripheral Pulses: 2+ Radial (R). 2+ Radial (L). 2+ Pedal (R). 2+ Pedal (L) Abdominal Exam: Normal bowel sounds. Soft. normal abdomen, no visible veins, Nontender. No hepatospenomegaly. No masses Ankle Exam: Negative ankle edema Lower extremities: Negative lower extremity edema Neuro/Mental Status: A&O x4. Coherent. Thoughts/Psych: Normal thought pattern. Appropriate mood and affect. Good judgement and insight Skin Exam: Normal inspection. Normal color. Warm. Dry laboratory and microbiology Laboratory Tests 05/13/25 06:03 Test 05/13/25 06:03 Range/Units Serum Glucose 158 H 74-106 mg/dL Microbiology Date/Time Source Procedure Growth Status 05/13/25 08:00 Nose MRSA Screen - Final Complete Labs and/or images reviewed: Labs reviewed by me, Image(s) reviewed by me Problem List/Assessment/Plan Problem List/Assessment/Plan # Sepsis # Acute hypoxic respiratory failure # Acute on chronic CHF # NSTEMI likely type 2 -Troponin: 57 > 56 -Lactic acid: 4.5 > 3.7 -Echocardiogram pending report -Chest/Abdomen/Pelvis CT : Bilateral ground-glass opacities may represent pulmonary edema. Moderate right and small left pleural effusion. Cardiomegaly -Chest X-ray: Cardiomegaly. Left anterior chest cardiac device. Question minimal lung volume overload -Lasix 40 MG IV bid -Mednebs with Levalbuterol 1.25 MG q6h and Ipratropium 0.5 MG q6h -Aspirin 81 MG PO once daily -BNP: 52 # Acute compensated/decompensated liver failure # Liver cirrhosis # Alcohol intoxication # Alcohol hepatitis # Transaminitis -Chest/Abdomen/Pelvis CT : Small volume ascites in the abdomen/ pelvis. Small liver. -MELD score: 24 -Maddrey score: 49.9, poor prognosis,started methylprednisolone 40mg iv daily -Liver US: Coarsened heterogeneous liver with surface nodularity suggesting cirrhosis. -Ativan 1 mg IV q2h prn -Thiamine 100 MG oral daily -Spironolactone 50 mg p.o. daily -Lasix 40 mg daily # Pulmonary edema,likely due to CHF exacerbation/ decompensated liver cirrhosis # Pleural effusion -Chest/Abdomen/Pelvis CT : Bilateral ground-glass opacities may represent pulmonary edema. Moderate right and small left pleural effusion. Cardiomegaly # Colonic diverticulosis without acute diverticulitis -Chest/Abdomen/Pelvis CT : Colonic diverticulosis without acute diverticulitis. Small volume ascites in the abdomen/ pelvis. Small liver. # Type 2 diabetes with hyperglycemia, uncontrolled -Mild sliding scale -HbA1c 6.7 # Methamphetamine use -patient counselled extensively for >15 minutes on the need for methamphetamine consumption # Ruled out DVT Extremity venous study: No right or left femoropopliteal venous thrombosis. Diet: Cardiac DVT prophylaxis: Lovenox 40mg Goals of care: Full code, discussed for >30 minutes on 05/12/25 Plan discussed with patient Plan discussed with: Patient My Orders My Orders Orders - NASIM RED RESIDENT Procedure Category Date Status Time Famotidine Injection PHA 05/13/25 In Process (Pepcid Injection) 22:00 Furosemide Injection PHA 05/13/25 In Process (Lasix Injection) 12:15 Spironolactone PHA 05/14/25 In Process (Aldactone) 10:00 Thiamine Tab PHA 05/14/25 In Process 10:00 Folic Acid Tablet PHA 05/14/25 In Process 10:00 D5w/Sod Chl 0.45% PHA 05/13/25 In Process (D5w 1/2ns) 12:15 Insulin R (Human) PHA 05/13/25 In Process (Insulin R) 12:15 May Shower AMIE 05/13/25 In Process 17:16 Date of Service: May 13, 2025 Billing Provider: BERENICE KWONG MD Common Visit Codes: [id number] INP/OBS CARE(HIGH) NASIM RED RESIDENT May 13, 2025 19:31
[2025-05-13] MEDS: FAMOTIDINE (10MG/ML) 2ML VL IV SCH (21:36)
[2025-05-14] VITALS (19 sets, daily range): BP systolic 115–155; BP diastolic 69–90; PULSE 83–117; RESP 16–19; TEMP 96.5–97.8; O2SAT 96–100
[2025-05-14 06:02] LABS: Hematocrit 34.4 % (41.0-53.0); Hemoglobin 11.8 g/dL (13.5-17.5); Mean Corpuscular Hemoglobin 30.6 pg (28.0-32.0); Mean Corpuscular Volume 89.6 fL (80.0-100.0); Nucleated Red Blood Cells % 0.0 %
[2025-05-14 06:22] LABS: Anion Gap 12 (5-15); Carbon Dioxide 23 mmol/L (20-31); Potassium 3.8 mmol/L (3.5-5.1)
[2025-05-14 06:28] LABS: BUN/Creatinine Ratio 24.2 (10.0-20.0)
[2025-05-14 06:29] LABS: Blood Urea Nitrogen 30 mg/dL (9-23); Calcium 8.5 mg/dL (8.7-10.4); Chloride 98 mmol/L (98-107); Glucose 197 mg/dL (74-106); Sodium 133 mmol/L (136-145)
[2025-05-14 07:47] LABS: Albumin 3.7 g/dL (3.2-4.8); Anion Gap 11 (5-15); BUN/Creatinine Ratio 30.3 (10.0-20.0); Carbon Dioxide 24 mmol/L (20-31); Chloride 98 mmol/L (98-107); Potassium 4.0 mmol/L (3.5-5.1); Total Protein 6.9 g/dL (5.7-8.2)
[2025-05-14 07:58] LABS: Alanine Aminotransferase 807 U/L (7-40); Alkaline Phosphatase 131 U/L (46-116); Bilirubin, Total 2.3 mg/dL (0.2-1.0); Blood Urea Nitrogen 37 mg/dL (9-23); Calcium 8.4 mg/dL (8.7-10.4); Glucose 197 mg/dL (74-106); Sodium 133 mmol/L (136-145)
[2025-05-14 08:11] LABS: Albumin 3.7 g/dL (3.2-4.8); Total Protein 7.0 g/dL (5.7-8.2)
[2025-05-14 08:13] LABS: Alanine Aminotransferase 809.0 U/L (7-40); Alkaline Phosphatase 131.0 U/L (46-116); Bilirubin, Direct 1.3 mg/dL (<0.3); Bilirubin, Total 2.3 mg/dL (0.2-1.0)
[2025-05-14] MEDS: FOLIC ACID 1 MG TAB PO SCH (09:18)
[2025-05-14] MEDS: SPIRONOLACTONE 25 MG TAB PO SCH (09:18)
[2025-05-14] MEDS: THIAMINE HCL 100 MG TAB PO SCH (09:18)
[2025-05-14] MEDS: DOXYCYCLINE 100 MG TAB/CAP PO SCH (10:22)
--- NOTE | 2025-05-14 11:34 | DVHSR ---
APPROVED REPORT EXAM: Two-dimensional and M-mode echocardiogram with Doppler and color Doppler. Blood Pressure: 123/88 mmHg INDICATION Chest Pain RISK FACTORS Height: 5'8", Weight: 165 DIMENSIONS LVDd 7.6 (3.8-5.7cm) LA (2D) 5.1 (1.9-4.0cm) Aortic Root 3.0 (2.0-3.7cm) LVDs 7.4 (2.5-4.0cm) LA (MM) (1.9-4.0cm) Aortic Cusp Exc 1.8 (1.5-2.0cm) EF (%) 4.0 (55-70%) Rt. Atrium 6.1 (1.9-4.0cm) Asc. Aorta 2.9 cm IVSd 0.8 (0.7-1.1cm) RV (D) 6.0 (1.8-2.4cm) PWd 1.1 (0.7-1.1cm) Mitral Valve Mitral Mitral Stenosis E/A ratio 0.0 2D MVA cm2 Aortic Valve Aortic Valve Aortic Stenosis V1 0.54m/s AO Mean GR. mmHg V2 0.71m/s AO Peak GR. 2mmHg LVOT Diameter 2.3 (1.8-2.4cm) Doppler WILMAR 3.16cm2 AI P 1/2 Time 348.52ms Pulmonic Valve V2 0.70m/s Tricuspid Valve TR Velocity 2.71m/s RVSP 40mmHg Conclusion END STAGE DILATED CARDIOMYOPATHY LV EF IS ONLY 5% NORMAL VALVES NO EFFUSION MODERATE DEGREE PULMONARY HYPERTENSION
[2025-05-14 11:35] LABS: Hepatitis B Surface Antigen Negative (Negative)
[2025-05-14] MEDS: PANTOPRAZOLE 40 MG TAB PO ONE (11:37)
[2025-05-14 11:42] LABS: Hepatitis C Antibody Negative (Negative)
--- NOTE | 2025-05-14 15:04 | DVHPN2 ---
Progress Note Date Seen: May 14, 2025 Resident Creating Document: JHMASHA TEMPLE RESIDENT Medical Necessity Reason Pt with a Central, PICC or Fol: No Subjective Review of Systems Hemodynamically stable Denies any abdominal pain, nausea or vomiting Tolerating diet well Did not report a bowel movement since yesterday Objective vital signs Vital Sign Date Time Temp Pulse Resp B/P (MAP) Pulse Ox O2 Delivery O2 Flow Rate FiO2 05/14/25 12:30 96.5 108 18 122/90 (101) 100 96.5 05/14/25 11:29 Nasal Cannula* 3 32 Total Intake and Output 05/13/25 05/13/25 05/14/25 15:00 23:00 07:00 Intake Total 400 ml 350 ml Balance 400 ml 350 ml medications Current Medications Medications Dose Ordered Sig/Demetria Route Start Time Stop Time Status Last Admin Dose Admin Acetaminophen/ Hydrocodone Bitart 1 tab Q4HP PRN PO 05/12/25 22:15 05/14/25 10:22 1 TAB Enoxaparin Sodium 40 mg DAILY SC 05/13/25 10:00 05/14/25 09:17 40 MG Nitroglycerin 0.4 mg Q5MINP PRN SL 05/12/25 22:15 Morphine Sulfate 2 mg Q30M PRN IV 05/12/25 22:15 Aspirin 81 mg DAILY PO 05/13/25 10:00 05/14/25 09:18 81 MG Ipratropium [place] 0.5 mg Q6HWA NEB 05/13/25 06:00 05/14/25 11:29 0.5 MG Diagnostic Test (Pha) 1 strip ACHS 05/13/25 07:00 05/14/25 11:25 1 STRIP Dextrose 50 ml UD PRN IV 05/12/25 22:15 Levalbuterol HCl 1.25 mg Q6HR NEB 05/13/25 00:00 05/14/25 11:29 1.25 MG Lorazepam 1 mg Q2HPRN PRN IV 05/13/25 03:00 Famotidine 20 mg Q12HR IV 05/13/25 22:00 05/14/25 09:16 20 MG Furosemide 40 mg DAILY IV 05/13/25 12:15 05/14/25 09:17 40 MG Spironolactone 50 mg DAILY PO 05/14/25 10:00 05/14/25 09:18 50 MG Methylprednisolone Sodium Succinate 40 mg DAILY IV 05/13/25 12:15 05/14/25 09:16 40 MG Thiamine HCl 100 mg DAILY PO 05/14/25 10:00 05/14/25 09:18 100 MG Folic Acid 1 mg DAILY PO 05/14/25 10:00 05/14/25 09:18 1 MG Insulin Human Regular Q6HR SC 05/13/25 12:15 05/14/25 11:36 3 UNITS Doxycycline Monohydrate 100 mg Q12HR PO 05/14/25 10:00 05/14/25 10:22 100 MG Pantoprazole Sodium 40 mg DAILY@0600 PO 05/15/25 06:00 Examination Gen - no pallor, positive scleral icterus Skin - Patients skin is warm and dry. HEENT - normocephalic, atraumatic, dry mucous membranes. Neck - supple, no lymphadenopathy Pulmonary - B/L diffuse rales cardiovascular - regular S1,S2 heard GI - soft nontender abdomen. Flank fullness Bowel sounds normoactive. Neurological - Patient is alert and oriented x4 and is following commands, no weakness laboratory and microbiology Laboratory Tests 05/14/25 04:55 Test 05/14/25 04:55 Range/Units Serum Glucose 197 H 74-106 mg/dL Microbiology Date/Time Source Procedure Growth Status 05/13/25 08:00 Nose MRSA Screen - Final Complete 05/12/25 19:55 Blood Blood Culture - Preliminary NO GROWTH AFTER 24 HOURS OF INCUBATION. Resulted Problem List/Assessment/Plan Problem List/Assessment/Plan Alcoholic hepatitis ( MDF 49.9 ) Probable liver cirrhosis ( MELD Na 24) Fluid overload likely d/t CHF exacerbation/decompensated liver cirrhosis Hyperbilirubinemia JULIANNA likely hemodynamically mediated NSTEMI likely type 2 Acute on chronic systolic heart failure Methamphetamine use Plan - continue with diuresis with Lasix and spironolactone - steroids given high MDF for alcoholic hepatitis - acute hepatitis panel negative - lactulose 30 mL daily - advised to strictly avoid alcohol - monitor LFTs - thiamine - PUD prophylaxis Plan discussed with Dr. Coleman Plan discussed with: Patient, Other (DANNIELLE Johnson) MASHA HAMILTON RESIDENT May 14, 2025 15:04
--- NOTE | 2025-05-14 15:43 | DVHCONRES ---
Date Seen: May 14, 2025 Resident Creating Document: JOSE ALFREDO RIOS RESIDENT Referring Physician Dr King Reason for Consultation CHF History of Present Illness Isabella Hernandez is a 55-year-old male with a PMH of heart failure since 2006, defibrillator, prior [place], COPD on home oxygen 2 L, HTN, type 2 DM with insulin usage , ex meth user and neuropathy presented to the ED with the chief complaints of chest pressure and worsening of shortness of breaths for 1 month. He has been experiencing pressure-like pain in the middle of the chest that stays localized and does not radiate to left arm or back. The symptoms developed after running out of medications and not obtain refills. Patient reported having orthopnea, PND. Patient reported he has lost angiogram was performed 9 years ago. On arrival to ER initial laboratory revealed elevated troponins in 50s and BNP was in 1999. PMH: As above PSH: Defibrillator placement Family history: Heart disease in mother Social history: Lives at home. Ex-smoker, quitting like 10 years back, active alcohol user drinks 2 bottles everyday, history of methamphetamine abuse, last used 5 years ago. Allergies: No known allergies Home medications: Metformin, lisinopril, Jardiance, vitamin D2, gabapentin, Lasix 40 mg, digoxin, spironolactone, Lipitor, nortriptyline, carvedilol ROS Patient seen and examined at the bedside. Patient reported currently having michael rtness of breath and he is on 2 L oxygen but reported improvement since admission. Family History: Patient reports no known family medical history. Allergies: Coded Allergies: NO KNOWN ALLERGIES (Unverified , 05/12/25) Home Meds Reported Medications Albuterol Sulfate (VENTOLIN MDI) 90 Mcg Ih, 90 MCG IN, INH 05/13/25 Carvedilol (Carvedilol) 12.5 Mg Tab, 1 TAB PO BID, #180 TAB 1 Refill 05/13/25 Nortriptyline Hcl (PAMELOR CAPSULE) 25 Mg Cp, 2 CAP PO QPM, #30 CAP 3 Refills 05/13/25 Atorvastatin Calcium (ATORVASTATIN CALCIUM) 40 Mg Tab, 1 TAB PO DAILY, #30 TAB 5 Refills 05/13/25 Spironolactone (Aldactone) 25 Mg Tab, 1 TAB PO DAILY, #90 TAB 1 Refill 05/13/25 Digoxin (Digoxin) 125 Mcg Tab, 125 MCG PO DAILY, TAB 05/13/25 Furosemide (Furosemide) 40 Mg Tab, 1 TAB PO DAILY, #30 TAB 5 Refills 05/13/25 Folic Gmzr-Jyfdwgxhea-Iblemxeb (Folbic) Tab, 1 TAB PO DAILY, #90 TAB 1 Refill 05/13/25 Gabapentin (Once-Daily) (Gabapentin) 300 Mg Tab, 300 MG PO DAILY, TAB 05/13/25 Ergocalciferol (VITAMIN D2) 2,000 Unit Tab, 39687 UNIT PO, TAB 05/13/25 Empagliflozin (Jardiance) 10 Mg Tab, 10 MG PO DAILY, TAB 05/13/25 Lisinopril (Lisinopril) 2.5 Mg Tab, 1 TAB PO DAILY, #30 TAB 5 Refills 05/13/25 Metformin Hydrochloride (METFORMIN HCL ER) 1,000 Mg Tab, 1 TAB PO DAILY, #90 TAB 1 Refill 05/13/25 Current Medications Current Medications Medications (Trade) Dose Ordered Sig/Demetria Route PRN Reason Start Time Stop Time Status Last Admin Furosemide (Lasix Injection) 40 mg BIDD IV 05/13/25 18:00 05/13/25 12:07 DC Famotidine (Pepcid Injection) 20 mg Q12HR IV 05/13/25 22:00 05/14/25 09:16 Spironolactone (Aldactone) 50 mg DAILY PO 05/14/25 10:00 05/14/25 09:18 Thiamine HCl 100 mg DAILY PO 05/14/25 10:00 05/14/25 09:18 Folic Acid 1 mg DAILY PO 05/14/25 10:00 05/14/25 09:18 Doxycycline Monohydrate (Vibramycin Tablet) 100 mg Q12HR PO 05/14/25 10:00 05/14/25 10:22 Pantoprazole Sodium (Protonix Tablet) 40 mg DAILY@0600 PO 05/15/25 06:00 Lactulose 30 ml DAILY PO 05/15/25 10:00 Vital Signs Vital Signs Date Time Temp Pulse Resp B/P (MAP) Pulse Ox O2 Delivery O2 Flow Rate FiO2 05/14/25 12:30 96.5 108 18 122/90 (101) 100 96.5 05/14/25 11:29 Nasal Cannula* 3 32 Physical Exam Pt is lying on bed General Appearance: Alert, Oriented X3, Cooperative, Not in acute distress HEENT: Atraumatic, Mucous membranes moist/pink Respiratory: Bilateral crackles more on the right side Cardiovascular: Regular rate, Normal S1, Normal S2, No murmurs Abdominal: Active bowel sounds, Soft, no distention, no tenderness Extremities: No edema, Normal pulses, No tenderness/swelling Skin: No Significant rash, except past surgical scars Neuro: Normal speech, sensorimotor deficits none Psych/Mental Status: Mental status NL, Mood NL Nurse was there as multi site leasing consultant during examination Labs/Diagnostic Data Labs Test 05/14/25 11:22 05/14/25 04:55 05/13/25 06:03 05/13/25 02:47 Range/Units POC Glucose 170 H 70-106 mg/dl White Blood Count 4.8 4.4-10.8 10^3/uL Red Blood Count 3.85 L 4.5-5.90 10^6/uL Hemoglobin 11.8 L 13.5-17.5 g/dL Hematocrit 34.4 L 41.0-53.0 % Mean Corpuscular Volume 89.6 80.0-100.0 fL Mean Corpuscular Hemoglobin 30.6 28.0-32.0 pg Mean Corpuscular Hemoglobin Concent 34.1 32.0-36.0 g/dL Red Cell Distribution Width 17.2 H 11.8-14.3 % Platelet Count 96 L 140-450 10^3/uL Mean Platelet Volume 8.9 6.9-10.8 fL Neutrophils (%) (Auto) 92.7 H 37.0-80.0 % Lymphocytes (%) (Auto) 4.3 L 10.0-50.0 % Monocytes (%) (Auto) 2.9 0.0-12.0 % Eosinophils (%) (Auto) 0.0 0.0-7.0 % Basophils (%) (Auto) 0.1 0.0-2.0 % Neutrophils # (Auto) 4.4 1.6-8.6 10 ^3/uL Lymphocytes # (Auto) 0.2 L 0.4-5.4 10 ^3/uL Monocytes # (Auto) 0.1 0-1.3 10 ^3/uL Eosinophils # (Auto) 0 0-0.8 10 ^3/uL Basophils # (Auto) 0 0-0.2 10 ^3/uL Nucleated Red Blood Cells 0.0 % Sodium Level 133 L 136-145 mmol/L Potassium Level 4.0 3.5-5.1 mmol/L Chloride Level 98 98-107 mmol/L Carbon Dioxide Level 24 20-31 mmol/L Anion Gap 11 5-15 Blood Urea Nitrogen 37 H 9-23 mg/dL Creatinine 1.22 0.700-1.30 mg/dL Glomerular Filtration Rate Calc 71 >90 mL/min BUN/Creatinine Ratio 30.3 H 10.0-20.0 Serum Glucose 197 H 74-106 mg/dL Calcium Level 8.4 L 8.7-10.4 mg/dL Total Bilirubin 2.3 H 0.2-1.0 mg/dL Direct Bilirubin 1.3 H <0.3 mg/dL Aspartate Amino Transferase (AST) 685 H 13-40 U/L Alanine Aminotransferase (ALT) 809 H 7-40 U/L Alkaline Phosphatase 131 H 46-116 U/L Total Protein 7.0 5.7-8.2 g/dL Albumin 3.7 3.2-4.8 g/dL Hemoglobin A1c 6.7 H <5.7 % A1C Lactic Acid Level 2.1 *H 0.4-2.0 mmol/L Lipase 35 12-53 U/L Urine Color Yellow Yellow Urine Clarity Clear Clear Urine pH 6.0 5.0-9.0 Urine Specific [place] 1.038 H 1.001-1.035 Urine Protein Trace H Negative Urine Ketones Trace Negative Urine Blood Negative Negative /uL Urine Nitrite Negative Negative Urine Bilirubin Negative Negative Urine Urobilinogen 2 H Negative mg/dL Urine Leukocyte Esterase Negative Negative /uL Urine RBC None seen 0 - 3 /hpf Urine Microscopic WBC < 1 0-3 /HPF Urine Squamous Epithelial Cells Few <5 /hpf Urine Bacteria None seen None Seen /hpf Urine Glucose Normal Normal mg/dL Urine Opiates Screen Neg NEGATIVE Urine Fentanyl Screen Neg NEGATIVE Urine Barbiturates Screen Neg NEGATIVE Urine Phencyclidine Screen Neg NEGATIVE Urine Amphetamines Screen Pos NEGATIVE Urine Benzodiazepines Screen Neg NEGATIVE Urine Cocaine Screen Neg NEGATIVE Urine Cannabinoids Screen Neg NEGATIVE Test 05/13/25 00:10 05/12/25 23:35 05/12/25 21:56 05/12/25 19:55 Range/Units Blood Gas Specimen Type Venous Blood Gas Sample Site Other Blood Gas Patient Temperature 37.0 Arterial Blood Date Drawn [id number] Sunny Test N/a Venous Blood pH 7.385 7.320-7.430 Venous Blood pCO2 at Patient Temp 31.0 L 38.0-54.0 mmHg Venous Blood pO2 at Patient Temp < 36.5 23.0-48.0 mmHg Venous Blood HCO3 18.1 L 22.0-29.0 mmol/L Venous Blood Base Excess -5.6 L -2.0-3.0 mmol/L Blood Gas Liter Flow 3.00 Blood Gas Modality Nasal cannula FiO2 % 32.0 Blood Gas Critical Value Read Back Yes Influenza Type A Antigen Negative Negative Influenza Type B Antigen Negative Negative SARS-CoV-2 Antigen (Rapid) Negative NEGATIVE Prothrombin Time 22.1 H 9.3-11.8 sec Prothrombin Time INR 2.26 H 0.9-1.15 Activated Partial Thromboplast Time 36.4 H 24.5-34.5 SEC D-Dimer, Quantitative 6.87 H 0.0-0.49 mg/L FEU Magnesium Level 1.7 1.6-2.6 mg/dL Troponin I High Sensitivity 56 *H </=54 ng/L C-Reactive Protein High Sensitivity 2.95 H <1.0 mg/dL B-Type Natriuretic Peptide 2014.52 0-100 pg/mL Plasma/Serum Blood Alcohol 36.3 H <10 mg/dL Hepatitis A IgM Antibody Negative Hepatitis B Surface Antigen Negative Negative Hepatitis B Core IgM Antibody Negative Negative Hepatitis C Antibody Negative Negative Test 05/12/25 18:37 Range/Units Erythrocyte Sedimentation Rate 7 0-20 mm/hr Serum Osmolality 315 H 278-298 mOsm/kg Beta-Hydroxybutyric Acid 0.379 < 0.4 mmol/L Microbiology Date/Time Source Procedure Growth Status 05/13/25 08:00 Nose MRSA Screen - Final Complete 05/12/25 19:55 Blood Blood Culture - Preliminary NO GROWTH AFTER 24 HOURS OF INCUBATION. 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 40 mg Strict I&Os, daily weight and fluid restriction Lifestyle modifications including diet and exercise Counseled regarding cessation of alcohol and polysubstance use for more than 17 minutes Rest of the management as per primary team Case discussed with Dr. Kaiser, due to given patients risks and history patient is not a candidate for intervention at this time so we will continue optimal medical treatment, as renal function and BP permits. We are signing off. Thank you for allowing us to care for this patient. Please call with any questions or concerns. Plan discussed with: Patient JOSE ALFREDO RIOS RESIDENT May 14, 2025 15:43
[2025-05-14] MEDS: phytonadione 10 MG in SODIUM CHL 0.9% 50 ML IV ONE (17:05)
[2025-05-14] MEDS: LACTULOSE 20Gm/30ML SOLN PO ONE (17:05)
--- NOTE | 2025-05-14 19:41 | DVHPNRES ---
Progress Note Date Seen: May 14, 2025 Resident Creating Document: NASIM RED RESIDENT Medical Necessity Reason Pt with a Central, PICC or Fol: No Subjective Review of Systems David Mason is a 55-year old male past medical history of CHF since 2006,defibrillator, CT, COPD on 2 L oxygen at home,type 2 DM with insulin usage and neuropathy who presented to the ED with the chief complaint of chest pain. The patient described the pain as pressure-like, left-sided, nonradiating, associated with nausea, dizziness, shortness of breath and a nonproductive cough. Patient mentioned that his shortness of breath increased on lying down. He has not been able to get medication refills since 2 months. The patient admits to heavy alcohol use with last 7 years with his last binge drinking episode 2 days ago. He denies any fever,chills or dizziness . Past medical history: CHF, CT, COPD on 2 L oxygen at home, and neuropathy Past surgical history: ICD placement, appendectomy Social & Personal history: Lives at home with family Smokin-10 years 1 pack per day Alcohol: Heavy alcohol use for the last 7 years Drugs: Methamphetamine use Allergies: No known allergies Patient seen and examined at bedside. Patient is alert and oriented to time, place person and responding to all questions. Eyes: No Pain, No Vision change, No Conjunctivae inflammation, No Eyelid inflammation, No Redness ENT: No Ear pain, No Ear discharge, No Nose pain, No Nose discharge, No Nose congestion, No Mouth pain, No Mouth swelling, No Throat pain, No Throat swelling Cardiovascular: No Chest Pain, No Palpitations, No Orthopnea, No Paroxysmal No Dyspnea, No Edema, No Lt Headedness Respiratory: Cough, No Dry, Shortness of breath, SOB with exertion, No Wheezing, No Hemoptysis, No Pleuritic Pain, No Sputum Gastrointestinal: No Nausea, No Vomiting, No Abdominal Pain, No Diarrhea, No Constipation, No Melena, No Hematochezia Genitourinary: No Dysuria, No Frequency, No Incontinence, No Hematuria, No Retention 05/14/25- The patient was seen at bedside today. LFTs are downtrending. Echo showed end-stage dilated cardiomyopathy with LVEF 5% and moderate degree of pulmonary hypertension. Cardiology evaluated the patient and started him on Entresto 0.5 tab b.i.d. and Coreg 125 mg p.o. b.i.d. was started on lactulose 30 mg p.o. daily by GI. Hepatic panel was negative. The patient still complained of the shortness of breath and mentioned that sitting up makes it a little better. Objective vital signs Vital Sign Date Time Temp Pulse Resp B/P (MAP) Pulse Ox O2 Delivery O2 Flow Rate FiO2 05/14/25 16:52 97.3 114 18 155/75 (101) 100 97.3 05/14/25 11:29 Nasal Cannula* 3 32 Total Intake and Output 05/13/25 05/13/25 05/14/25 15:00 23:00 07:00 Intake Total 400 ml 350 ml Balance 400 ml 350 ml medications Current Medications Medications Dose Ordered Sig/Demetria Route Start Time Stop Time Status Last Admin Dose Admin Acetaminophen/ Hydrocodone Bitart 1 tab Q4HP PRN PO 05/12/25 22:15 05/14/25 10:22 1 TAB Enoxaparin Sodium 40 mg DAILY SC 05/13/25 10:00 05/14/25 09:17 40 MG Nitroglycerin 0.4 mg Q5MINP PRN SL 05/12/25 22:15 Morphine Sulfate 2 mg Q30M PRN IV 05/12/25 22:15 Aspirin 81 mg DAILY PO 05/13/25 10:00 05/14/25 09:18 81 MG Ipratropium [place] 0.5 mg Q6HWA NEB 05/13/25 06:00 05/14/25 11:29 0.5 MG Diagnostic Test (Pha) 1 strip ACHS 05/13/25 07:00 05/14/25 17:03 1 STRIP Dextrose 50 ml UD PRN IV 05/12/25 22:15 Levalbuterol HCl 1.25 mg Q6HR NEB 05/13/25 00:00 05/14/25 11:29 1.25 MG Lorazepam 1 mg Q2HPRN PRN IV 05/13/25 03:00 Famotidine 20 mg Q12HR IV 05/13/25 22:00 05/14/25 09:16 20 MG Spironolactone 50 mg DAILY PO 05/14/25 10:00 05/14/25 09:18 50 MG Methylprednisolone Sodium Succinate 40 mg DAILY IV 05/13/25 12:15 05/14/25 09:16 40 MG Thiamine HCl 100 mg DAILY PO 05/14/25 10:00 05/14/25 09:18 100 MG Folic Acid 1 mg DAILY PO 05/14/25 10:00 05/14/25 09:18 1 MG Insulin Human Regular Q6HR SC 05/13/25 12:15 05/14/25 17:03 4 UNITS Doxycycline Monohydrate 100 mg Q12HR PO 05/14/25 10:00 05/14/25 10:22 100 MG Pantoprazole Sodium 40 mg DAILY@0600 PO 05/15/25 06:00 Lactulose 30 ml DAILY PO 05/15/25 10:00 Furosemide 40 mg BID IV 05/14/25 22:00 Sacubitril/ Valsartan 0.5 tab BID PO 05/14/25 22:00 Carvedilol 3.125 mg Q12HR PO 05/14/25 22:00 Examination General Appearance: Cooperative. Well developed. Well nourished. NAD Head Exam: Normal inspection Neck Exam: Normal inspection. Non-tender. Normal alignment Pulmonary/Respiratory: Chest non-tender. crackles in bilateral lung bases, no wheezing. Cardiovascular/Chest: Regular rate and rhythm. No murmurs. No JVD. Peripheral Pulses: 2+ Radial (R). 2+ Radial (L). 2+ Pedal (R). 2+ Pedal (L) Abdominal Exam: Normal bowel sounds. Soft. normal abdomen, no visible veins, Nontender. No hepatospenomegaly. No masses Ankle Exam: Negative ankle edema Lower extremities: Negative lower extremity edema Neuro/Mental Status: A&O x4. Coherent. Thoughts/Psych: Normal thought pattern. Appropriate mood and affect. Good judgement and insight Skin Exam: Normal inspection. Normal color. Warm. Dry laboratory and microbiology Laboratory Tests 05/14/25 04:55 Test 05/14/25 04:55 Range/Units Serum Glucose 197 H 74-106 mg/dL Microbiology Date/Time Source Procedure Growth Status 05/13/25 08:00 Nose MRSA Screen - Final Complete 05/12/25 19:55 Blood Blood Culture - Preliminary NO GROWTH AFTER 24 HOURS OF INCUBATION. Resulted Labs and/or images reviewed: Labs reviewed by me, Image(s) reviewed by me Problem List/Assessment/Plan Problem List/Assessment/Plan # Sepsis # Acute hypoxic respiratory failure # Acute on chronic CHF with EF 5% # NSTEMI likely type 2 # Nonischemic dilated cardiomyopathy # Drug-induced/Alcoholic cardiomyopathy # End-stage dilated cardiomyopathy # Moderate pulmonary hypertension -Troponin: 57 > 56 -Lactic acid: 4.5 > 3.7 -Echocardiogram END STAGE DILATED CARDIOMYOPATHY LV EF IS ONLY 5% NORMAL VALVES NO EFFUSION MODERATE DEGREE PULMONARY HYPERTENSION -Chest/Abdomen/Pelvis CT : Bilateral ground-glass opacities may represent pulmonary edema. Moderate right and small left pleural effusion. Cardiomegaly -Chest X-ray: Cardiomegaly. Left anterior chest cardiac device. Question minimal lung volume overload -Lasix 40 MG IV bid -Mednebs with Levalbuterol 1.25 MG q6h and Ipratropium 0.5 MG q6h -Aspirin 81 MG PO once daily -BNP: 2014.5 -started on Coreg 3.125 mg po q12 hr, Entresto 0.5 tab bid # Acute compensated/decompensated liver failure # Liver cirrhosis # Alcohol intoxication # Alcohol hepatitis # Transaminitis # Constipation -Chest/Abdomen/Pelvis CT : Small volume ascites in the abdomen/ pelvis. Small liver. -MELD score: 24 -Maddrey score: 49.9, poor prognosis,started methylprednisolone 40mg iv daily -Liver US: Coarsened heterogeneous liver with surface nodularity suggesting cirrhosis. -Ativan 1 mg IV q2h prn -Thiamine 100 MG oral daily -Spironolactone 50 mg p.o. daily -Lasix 40 mg daily -lactulose 30mg po daily -LFTs downtrending -Hepatic panel negative # Pulmonary edema,likely due to CHF exacerbation/ decompensated liver cirrhosis # Pleural effusion # Atypical pneumonia -Chest/Abdomen/Pelvis CT : Bilateral ground-glass opacities may represent pulmonary edema. Moderate right and small left pleural effusion. Cardiomegaly -started on doxycycline 100mg po bid # Colonic diverticulosis without acute diverticulitis -Chest/Abdomen/Pelvis CT : Colonic diverticulosis without acute diverticulitis. Small volume ascites in the abdomen/ pelvis. Small liver. # Type 2 diabetes with hyperglycemia, uncontrolled -Mild sliding scale -HbA1c 6.7 # Methamphetamine use -patient counselled extensively for >15 minutes on the need for methamphetamine consumption # Ruled out DVT Extremity venous study: No right or left femoropopliteal venous thrombosis. Diet: Cardiac DVT prophylaxis: Lovenox 40mg Goals of care: Full code, discussed for >30 minutes Plan discussed with patient Plan discussed with Dr Law Plan discussed with: Patient My Orders My Orders Orders - NASIM RED RESIDENT Procedure Category Date Status Time * Cardiology Consult CONS 05/14/25 Transmitted 13:36 Date of Service: May 14, 2025 Billing Provider: CHECO LAW MD Common Visit Codes: [id number] INP/OBS CARE(HIGH) NASIM RED RESIDENT May 14, 2025 19:41
[2025-05-14] MEDS: SACUBITRIL-VALSARTAN 24mg/26mg TAB PO SCH (21:15)
[2025-05-14] MEDS: CARVEDILOL 3.125 MG TAB PO SCH (21:16)
[2025-05-14] MEDS: FUROSEMIDE 40 MG/4 ML VIAL IV SCH (21:17)
[2025-05-15] VITALS (14 sets, daily range): BP systolic 97–117; BP diastolic 68–80; PULSE 67–103; RESP 17–20; TEMP 97.7–98.1; O2SAT 96–100
[2025-05-15] MEDS ORDERED: THROAT LOZENGES(CEPASTAT) MT ONE
[2025-05-15] MEDS: PANTOPRAZOLE 40 MG TAB PO SCH (05:34)
[2025-05-15 06:47] LABS: Albumin 3.5 g/dL (3.2-4.8); Alkaline Phosphatase 114 U/L (46-116); Anion Gap 10 (5-15); BUN/Creatinine Ratio 27.0 (10.0-20.0); Calcium 8.9 mg/dL (8.7-10.4); Carbon Dioxide 25 mmol/L (20-31); Potassium 5.0 mmol/L (3.5-5.1); Total Protein 6.8 g/dL (5.7-8.2)
[2025-05-15 06:50] LABS: Alanine Aminotransferase 581 U/L (7-40); Bilirubin, Total 2.3 mg/dL (0.2-1.0); Blood Urea Nitrogen 37 mg/dL (9-23); Chloride 97 mmol/L (98-107); Glucose 167 mg/dL (74-106); Sodium 132 mmol/L (136-145)
[2025-05-15] MEDS: SPIRONOLACTONE 25 MG TAB PO SCH (09:28)
[2025-05-15] MEDS: METOPROLOL TARTRATE 25 MG TAB PO SCH (09:28)
[2025-05-15] MEDS: LACTULOSE 20Gm/30ML SOLN PO SCH (09:45)
[2025-05-15] MEDS ORDERED: METOPROLOL SUCCINATE XL 50 MG TAB PO SCH (10:00)
--- NOTE | 2025-05-15 10:30 | DVHPNRES ---
Progress Note Date Seen: May 15, 2025 Resident Creating Document: NASIM RED RESIDENT Medical Necessity Reason Pt with a Central, PICC or Fol: No Subjective Review of Systems David Mason is a 55-year old male past medical history of CHF since 2006,defibrillator, [place], COPD on 2 L oxygen at home,type 2 DM with insulin usage and neuropathy who presented to the ED with the chief complaint of chest pain. The patient described the pain as pressure-like, left-sided, nonradiating, associated with nausea, dizziness, shortness of breath and a nonproductive cough. Patient mentioned that his shortness of breath increased on lying down. He has not been able to get medication refills since 2 months. The patient admits to heavy alcohol use with last 7 years with his last binge drinking episode 2 days ago. He denies any fever,chills or dizziness . Past medical history: CHF, [place], COPD on 2 L oxygen at home, and neuropathy Past surgical history: ICD placement, appendectomy Social & Personal history: Lives at home with family Smokin-10 years 1 pack per day Alcohol: Heavy alcohol use for the last 7 years Drugs: Methamphetamine use Allergies: No known allergies Patient seen and examined at bedside. Patient is alert and oriented to time, place person and responding to all questions. Eyes: No Pain, No Vision change, No Conjunctivae inflammation, No Eyelid inflammation, No Redness ENT: No Ear pain, No Ear discharge, No Nose pain, No Nose discharge, No Nose congestion, No Mouth pain, No Mouth swelling, No Throat pain, No Throat swelling Cardiovascular: No Chest Pain, No Palpitations, No Orthopnea, No Paroxysmal No Dyspnea, No Edema, No Lt Headedness Respiratory: Cough, No Dry, Shortness of breath, SOB with exertion, No Wheezing, No Hemoptysis, No Pleuritic Pain, No Sputum Gastrointestinal: No Nausea, No Vomiting, No Abdominal Pain, No Diarrhea, No Constipation, No Melena, No Hematochezia Genitourinary: No Dysuria, No Frequency, No Incontinence, No Hematuria, No Retention 05/14/25- The patient was seen at bedside today. LFTs are downtrending. Echo showed end-stage dilated cardiomyopathy with LVEF 5% and moderate degree of pulmonary hypertension. Cardiology evaluated the patient and started him on Entresto 0.5 tab b.i.d. and Coreg 125 mg p.o. b.i.d. was started on lactulose 30 mg p.o. daily by GI. Hepatic panel was negative. The patient still complained of the shortness of breath and mentioned that sitting up makes it a little better. 05/15/25- The patient was seen at bedside today. Patient still complained of shortness of breath. The poor prognosis was explained in detail to the patient and his family at bedside. Possible discharge for tomorrow. Objective vital signs Vital Sign Date Time Temp Pulse Resp B/P (MAP) Pulse Ox O2 Delivery O2 Flow Rate FiO2 05/15/25 09:28 95 108/78 05/15/25 09:00 97.7 19 100 97.7 05/15/25 07:17 Nasal Cannula* 3 32 Total Intake and Output 05/14/25 05/14/25 05/15/25 15:00 23:00 07:00 Intake Total 800 ml 460 ml Balance 800 ml 460 ml medications Current Medications Medications Dose Ordered Sig/Demetria Route Start Time Stop Time Status Last Admin Dose Admin Acetaminophen/ Hydrocodone Bitart 1 tab Q4HP PRN PO 05/12/25 22:15 05/14/25 21:18 1 TAB Enoxaparin Sodium 40 mg DAILY SC 05/13/25 10:00 05/14/25 09:17 40 MG Nitroglycerin 0.4 mg Q5MINP PRN SL 05/12/25 22:15 Morphine Sulfate 2 mg Q30M PRN IV 05/12/25 22:15 Aspirin 81 mg DAILY PO 05/13/25 10:00 05/15/25 09:28 81 MG Ipratropium [place] 0.5 mg Q6HWA NEB 05/13/25 06:00 05/15/25 07:11 0.5 MG Diagnostic Test (Pha) 1 strip ACHS 05/13/25 07:00 05/15/25 06:34 1 STRIP Dextrose 50 ml UD PRN IV 05/12/25 22:15 Levalbuterol HCl 1.25 mg Q6HR NEB 05/13/25 00:00 05/15/25 07:11 1.25 MG Lorazepam 1 mg Q2HPRN PRN IV 05/13/25 03:00 Famotidine 20 mg Q12HR IV 05/13/25 22:00 05/15/25 09:33 20 MG Methylprednisolone Sodium Succinate 40 mg DAILY IV 05/13/25 12:15 05/15/25 09:27 40 MG Thiamine HCl 100 mg DAILY PO 05/14/25 10:00 05/15/25 09:28 100 MG Folic Acid 1 mg DAILY PO 05/14/25 10:00 05/15/25 09:27 1 MG Insulin Human Regular Q6HR SC 05/13/25 12:15 05/15/25 06:10 3 UNITS Doxycycline Monohydrate 100 mg Q12HR PO 05/14/25 10:00 05/15/25 09:29 100 MG Pantoprazole Sodium 40 mg DAILY@0600 PO 05/15/25 06:00 05/15/25 05:34 40 MG Lactulose 30 ml DAILY PO 05/15/25 10:00 05/15/25 09:45 30 ML Furosemide 40 mg BID IV 05/14/25 22:00 05/15/25 09:27 40 MG Sacubitril/ Valsartan 0.5 tab BID PO 05/14/25 22:00 05/15/25 09:27 0.5 TAB Spironolactone 12.5 mg DAILY PO 05/15/25 10:00 05/15/25 09:28 12.5 MG Metoprolol Tartrate 12.5 mg BID PO 05/15/25 10:00 05/15/25 09:28 12.5 MG Examination General Appearance: Cooperative. Well developed. Well nourished. NAD Head Exam: Normal inspection Neck Exam: Normal inspection. Non-tender. Normal alignment Pulmonary/Respiratory: Chest non-tender. crackles in bilateral lung bases, no wheezing. Cardiovascular/Chest: Regular rate and rhythm. No murmurs. No JVD. Peripheral Pulses: 2+ Radial (R). 2+ Radial (L). 2+ Pedal (R). 2+ Pedal (L) Abdominal Exam: Normal bowel sounds. Soft. normal abdomen, no visible veins, Nontender. No hepatospenomegaly. No masses Ankle Exam: Negative ankle edema Lower extremities: Negative lower extremity edema Neuro/Mental Status: A&O x4. Coherent. Thoughts/Psych: Normal thought pattern. Appropriate mood and affect. Good judgement and insight Skin Exam: Normal inspection. Normal color. Warm. Dry laboratory and microbiology Laboratory Tests 05/15/25 05:23 05/14/25 04:55 Test 05/15/25 05:23 Range/Units Serum Glucose 167 H 74-106 mg/dL Microbiology Date/Time Source Procedure Growth Status 05/13/25 08:00 Nose MRSA Screen - Final Complete 05/12/25 19:55 Blood Blood Culture - Preliminary NO GROWTH AFTER 48 HOURS OF INCUBATION. Resulted Labs and/or images reviewed: Labs reviewed by me, Image(s) reviewed by me Problem List/Assessment/Plan Problem List/Assessment/Plan Assessment/Plan # Sepsis likely due to Atypical / gram +/ gram - pneumonia # Acute hypoxic respiratory failure likely due to acute on chronic HFrEF # Acute on chronic systolic heart failure (HFrEF 5%) # NSTEMI likely type 2 due to above # Nonischemic dilated cardiomyopathy in the setting of chronic methamphetamine abuse # Drug-induced/Alcoholic cardiomyopathy # End-stage dilated cardiomyopathy # Moderate pulmonary hypertension -Troponin: 57 > 56 -Lactic acid: 4.5 > 3.7 -Echocardiogram showed an end-stage dilated cardiomyopathy with an LVEF of 5%, there is also moderate degree pulmonary hypertension, normal cardiac valves and no pericardial effusion -Chest/Abdomen/Pelvis CT : Bilateral ground-glass opacities may represent pulmonary edema. Moderate right and small left pleural effusion. Cardiomegaly -Chest X-ray: Cardiomegaly. Left anterior chest cardiac device. Question minimal lung volume overload -Lasix 40 MG IV bid -Mednebs with Levalbuterol 1.25 mg q6h and Ipratropium 0.5 mg q6h -Aspirin 81 MG PO daily -BNP: 2014.5 -started on metoprolol tartrate 12.5mg bid, spironolactone 12.5mg daily and furosemide 40mg BID # Acute decompensated liver cirrhosis w/o ascites # Acute Alcoholic hepatitis # History of heavy alcohol abuse # Acute severe Transaminitis due to above # Acute on chronic Constipation -Chest/Abdomen/Pelvis CT : Small volume ascites in the abdomen/ pelvis. Small liver. -MELD score: 24 -Maddrey score: 49.9, poor prognosis,started methylprednisolone 40mg iv daily ( 05/13/25) -Liver US: Coarsened heterogeneous liver with surface nodularity suggesting cirrhosis. -Ativan 1 mg IV q2h prn -Thiamine 100 MG oral daily -Spironolactone 50 mg p.o. daily -Lasix 40 mg daily -lactulose 30mg po daily -LFTs improving -Hepatic panel negative # Pulmonary edema,likely due to acute systolic heart failure exacerbation and decompensated liver cirrhosis # Acute bilateral Pleural effusion in the setting of volume overload due to above -Chest/Abdomen/Pelvis CT : Bilateral ground-glass opacities may represent pulmonary edema. Moderate right and small left pleural effusion. Cardiomegaly -Continue on doxycycline 100mg po bid # Colonic diverticulosis without acute diverticulitis -Chest/Abdomen/Pelvis CT : Colonic diverticulosis without acute diverticulitis. Small volume ascites in the abdomen/ pelvis. Small liver. # Type 2 diabetes with HbA1C 6.7 -Mild sliding scale insulin # Methamphetamine and alcohol abuse disorder -patient counselled extensively for >15 minutes regarding cessation of methamphetamine, alcohol and rehabilitation. # Ruled out DVT Extremity venous study: No right or left femoropopliteal venous thrombosis. Diet: Cardiac DVT prophylaxis: Lovenox Goals of care: Full code, discussed for >30 minutes Plan discussed with patient Plan discussed with Dr Haines Plan discussed with: Patient My Orders My Orders Orders - NASIM RED RESIDENT Procedure Category Date Status Time * Cardiology Consult CONS 05/14/25 Transmitted 13:36 Date of Service: May 15, 2025 Billing Provider: CHECO HAINES MD Common Visit Codes: [id number] INP/OBS CARE(HIGH) NASIM RED RESIDENT May 15, 2025 10:30 SESAR BLAKE RESIDENT May 15, 2025 21:12
--- NOTE | 2025-05-15 13:57 | DVHPN2 ---
Progress Note Date Seen: May 15, 2025 Resident Creating Document: [email or web address] Rabago RESIDENT Medical Necessity Reason Pt with a Central, PICC or Fol: No Subjective Review of Systems no bowel movements reported denies nausea or vomiting no abd pain reported Objective vital signs Vital Sign Date Time Temp Pulse Resp B/P (MAP) Pulse Ox O2 Delivery O2 Flow Rate FiO2 05/15/25 12:50 97.8 67 17 117/80 (92) 99 97.8 05/15/25 11:14 Nasal Cannula* 2 28 Total Intake and Output 05/14/25 05/14/25 05/15/25 15:00 23:00 07:00 Intake Total 800 ml 460 ml Balance 800 ml 460 ml medications Current Medications Medications Dose Ordered Sig/Demetria Route Start Time Stop Time Status Last Admin Dose Admin Acetaminophen/ Hydrocodone Bitart 1 tab Q4HP PRN PO 05/12/25 22:15 05/14/25 21:18 1 TAB Enoxaparin Sodium 40 mg DAILY SC 05/13/25 10:00 05/14/25 09:17 40 MG Nitroglycerin 0.4 mg Q5MINP PRN SL 05/12/25 22:15 Morphine Sulfate 2 mg Q30M PRN IV 05/12/25 22:15 Aspirin 81 mg DAILY PO 05/13/25 10:00 05/15/25 09:28 81 MG Ipratropium [place] 0.5 mg Q6HWA NEB 05/13/25 06:00 05/15/25 11:08 0.5 MG Diagnostic Test (Pha) 1 strip ACHS 05/13/25 07:00 05/15/25 11:11 1 STRIP Dextrose 50 ml UD PRN IV 05/12/25 22:15 Levalbuterol HCl 1.25 mg Q6HR NEB 05/13/25 00:00 05/15/25 11:08 1.25 MG Lorazepam 1 mg Q2HPRN PRN IV 05/13/25 03:00 Famotidine 20 mg Q12HR IV 05/13/25 22:00 05/15/25 09:33 20 MG Methylprednisolone Sodium Succinate 40 mg DAILY IV 05/13/25 12:15 05/15/25 09:27 40 MG Thiamine HCl 100 mg DAILY PO 05/14/25 10:00 05/15/25 09:28 100 MG Folic Acid 1 mg DAILY PO 05/14/25 10:00 05/15/25 09:27 1 MG Insulin Human Regular Q6HR SC 05/13/25 12:15 05/15/25 06:10 3 UNITS Doxycycline Monohydrate 100 mg Q12HR PO 05/14/25 10:00 05/15/25 09:29 100 MG Pantoprazole Sodium 40 mg DAILY@0600 PO 05/15/25 06:00 05/15/25 05:34 40 MG Lactulose 30 ml DAILY PO 05/15/25 10:00 05/15/25 09:45 30 ML Furosemide 40 mg BID IV 05/14/25 22:00 05/15/25 09:27 40 MG Spironolactone 12.5 mg DAILY PO 05/15/25 10:00 05/15/25 09:28 12.5 MG Metoprolol Tartrate 12.5 mg BID PO 05/15/25 10:00 05/15/25 09:28 12.5 MG Examination Gen - no pallor, positive scleral icterus Skin - Patients skin is warm and dry. HEENT - normocephalic, atraumatic, dry mucous membranes. Neck - supple, no lymphadenopathy Pulmonary - B/L diffuse rales cardiovascular - regular S1,S2 heard GI - soft nontender abdomen. Flank fullness Bowel sounds normoactive. Neurological - Patient is alert and oriented x4 and is following commands, no weakness laboratory and microbiology Laboratory Tests 05/15/25 05:23 05/14/25 04:55 Test 05/15/25 05:23 Range/Units Serum Glucose 167 H 74-106 mg/dL Microbiology Date/Time Source Procedure Growth Status 05/13/25 08:00 Nose MRSA Screen - Final Complete 05/12/25 19:55 Blood Blood Culture - Preliminary NO GROWTH AFTER 48 HOURS OF INCUBATION. Resulted Problem List/Assessment/Plan Problem List/Assessment/Plan Alcoholic hepatitis ( MDF 49.9 ) Probable liver cirrhosis ( MELD Na 24) Fluid overload likely d/t CHF exacerbation/decompensated liver cirrhosis Hyperbilirubinemia JULIANNA likely hemodynamically mediated NSTEMI likely type 2 Acute on chronic systolic heart failure Methamphetamine use Plan - continue with diuresis with Lasix and spironolactone - steroids given high MDF for alcoholic hepatitis - acute hepatitis panel negative - lactulose 30 mL daily - advised to strictly avoid alcohol - monitor LFTs - thiamine - PUD prophylaxis Plan discussed with Dr. Coleman Plan discussed with: Patient, Other (RN Elizabeth) My Orders My Orders Orders - MASHA HAMILTON Procedure Category Date Status Time Lactulose Oral PHA 05/15/25 In Process 10:00 MASHA HAMILTON May 15, 2025 13:57
[2025-05-16] VITALS (11 sets, daily range): BP systolic 100–115; BP diastolic 60–86; PULSE 68–104; RESP 16–20; TEMP 97.4–97.6; O2SAT 94–100
[2025-05-16 06:54] LABS: INR 1.77 (0.9-1.15); Partial Thromboplastin Time 36.5 SEC (24.5-34.5); Prothrombin Time 17.7 sec (9.3-11.8)
[2025-05-16 06:56] LABS: Albumin 3.7 g/dL (3.2-4.8); Anion Gap 10 (5-15); BUN/Creatinine Ratio 28.5 (10.0-20.0); Calcium 8.8 mg/dL (8.7-10.4); Carbon Dioxide 26 mmol/L (20-31); Potassium 4.4 mmol/L (3.5-5.1); Total Protein 7.2 g/dL (5.7-8.2)
[2025-05-16 07:01] LABS: Alanine Aminotransferase 517 U/L (7-40); Alkaline Phosphatase 156 U/L (46-116); Bilirubin, Total 2.3 mg/dL (0.2-1.0); Blood Urea Nitrogen 45 mg/dL (9-23); Chloride 95 mmol/L (98-107); Glucose 190 mg/dL (74-106); Sodium 131 mmol/L (136-145)
[2025-05-16] MEDS: SPIRONOLACTONE 25 MG TAB PO SCH (10:00)
[2025-05-16] MEDS ORDERED: EMPA1TAB PO (11:46)
[2025-05-16] MEDS ORDERED: SPIR50TA5 PO (11:46)
[2025-05-16] MEDS ORDERED: PRED20TA2 PO (11:46)
[2025-05-16] MEDS ORDERED: LACT10SO3 PO (11:46)
[2025-05-16] MEDS ORDERED: METO25TA5 PO (11:46)
[2025-05-16] MEDS ORDERED: FURO1TAB31 PO (11:46)
[2025-05-16] MEDS ORDERED: SACU1TAB PO (11:46)
[2025-05-16] MEDS ORDERED: METF-490 PO (11:46)
[2025-05-16] MEDS ORDERED: ASPI-498 OR (11:51)
[2025-05-16] MEDS ORDERED: DOXY-286 PO (11:51)
--- NOTE | 2025-05-16 14:38 | DVHDSRES ---
Discharge Summary Date of Admission Resident Creating Document: NASIM RED RESIDENT May 12, 2025 at 22:06 Date of Discharge: May 16, 2025 Admitting Diagnosis Unstable angina Labs/Diagnostic Data: Laboratory Results Test 05/16/25 11:16 05/16/25 04:35 05/14/25 04:55 05/13/25 06:03 POC Glucose 185 mg/dl (70-106) Prothrombin Time 17.7 sec (9.3-11.8) Prothrombin Time INR 1.77 (0.9-1.15) Activated Partial Thromboplast Time 36.5 SEC (24.5-34.5) Sodium Level 131 mmol/L (136-145) Potassium Level 4.4 mmol/L (3.5-5.1) Chloride Level 95 mmol/L (98-107) Carbon Dioxide Level 26 mmol/L (20-31) Anion Gap 10 (5-15) Blood Urea Nitrogen 45 mg/dL (9-23) Creatinine 1.58 mg/dL (0.700-1.30) Glomerular Filtration Rate Calc 52 mL/min (>90) BUN/Creatinine Ratio 28.5 (10.0-20.0) Serum Glucose 190 mg/dL (74-106) Calcium Level 8.8 mg/dL (8.7-10.4) Total Bilirubin 2.3 mg/dL (0.2-1.0) Aspartate Amino Transferase (AST) 158 U/L (13-40) Alanine Aminotransferase (ALT) 517 U/L (7-40) Alkaline Phosphatase 156 U/L (46-116) Total Protein 7.2 g/dL (5.7-8.2) Albumin 3.7 g/dL (3.2-4.8) White Blood Count 4.8 10^3/uL (4.4-10.8) Red Blood Count 3.85 10^6/uL (4.5-5.90) Hemoglobin 11.8 g/dL (13.5-17.5) Hematocrit 34.4 % (41.0-53.0) Mean Corpuscular Volume 89.6 fL (80.0-100.0) Mean Corpuscular Hemoglobin 30.6 pg (28.0-32.0) Mean Corpuscular Hemoglobin Concent 34.1 g/dL (32.0-36.0) Red Cell Distribution Width 17.2 % (11.8-14.3) Platelet Count 96 10^3/uL (140-450) Mean Platelet Volume 8.9 fL (6.9-10.8) Neutrophils (%) (Auto) 92.7 % (37.0-80.0) Lymphocytes (%) (Auto) 4.3 % (10.0-50.0) Monocytes (%) (Auto) 2.9 % (0.0-12.0) Eosinophils (%) (Auto) 0.0 % (0.0-7.0) Basophils (%) (Auto) 0.1 % (0.0-2.0) Neutrophils # (Auto) 4.4 10 ^3/uL (1.6-8.6) Lymphocytes # (Auto) 0.2 10 ^3/uL (0.4-5.4) Monocytes # (Auto) 0.1 10 ^3/uL (0-1.3) Eosinophils # (Auto) 0 10 ^3/uL (0-0.8) Basophils # (Auto) 0 10 ^3/uL (0-0.2) Nucleated Red Blood Cells 0.0 % Direct Bilirubin 1.3 mg/dL (<0.3) Hemoglobin A1c 6.7 % A1C (<5.7) Lactic Acid Level 2.1 mmol/L (0.4-2.0) Lipase 35 U/L (12-53) Test 05/13/25 02:47 05/13/25 00:10 05/12/25 23:35 05/12/25 21:56 Urine Color Yellow (Yellow) Urine Clarity Clear (Clear) Urine pH 6.0 (5.0-9.0) Urine Specific [place] 1.038 (1.001-1.035) Urine Protein Trace (Negative) Urine Ketones Trace (Negative) Urine Blood Negative /uL (Negative) Urine Nitrite Negative (Negative) Urine Bilirubin Negative (Negative) Urine Urobilinogen 2 mg/dL (Negative) Urine Leukocyte Esterase Negative /uL (Negative) Urine RBC None seen /hpf (0 - 3) Urine Microscopic WBC < 1 /HPF (0-3) Urine Squamous Epithelial Cells Few /hpf (<5) Urine Bacteria None seen /hpf (None Seen) Urine Glucose Normal mg/dL (Normal) Urine Opiates Screen Neg (NEGATIVE) Urine Fentanyl Screen Neg (NEGATIVE) Urine Barbiturates Screen Neg (NEGATIVE) Urine Phencyclidine Screen Neg (NEGATIVE) Urine Amphetamines Screen Pos (NEGATIVE) Urine Benzodiazepines Screen Neg (NEGATIVE) Urine Cocaine Screen Neg (NEGATIVE) Urine Cannabinoids Screen Neg (NEGATIVE) Blood Gas Specimen Type Venous Blood Gas Sample Site Other Blood Gas Patient Temperature 37.0 Arterial Blood Date Drawn [id number] Sunny Test N/a Venous Blood pH 7.385 (7.320-7.430) Venous Blood pCO2 at Patient Temp 31.0 mmHg (38.0-54.0) Venous Blood pO2 at Patient Temp < 36.5 mmHg (23.0-48.0) Venous Blood HCO3 18.1 mmol/L (22.0-29.0) Venous Blood Base Excess -5.6 mmol/L (-2.0-3.0) Blood Gas Liter Flow 3.00 Blood Gas Modality Nasal cannula FiO2 % 32.0 Blood Gas Critical Value Read Back Yes Influenza Type A Antigen Negative (Negative) Influenza Type B Antigen Negative (Negative) SARS-CoV-2 Antigen (Rapid) Negative (NEGATIVE) D-Dimer, Quantitative 6.87 mg/L FEU (0.0-0.49) Magnesium Level 1.7 mg/dL (1.6-2.6) Troponin I High Sensitivity 56 ng/L (</=54) C-Reactive Protein High Sensitivity 2.95 mg/dL (<1.0) B-Type Natriuretic Peptide 2014.52 pg/mL (0-100) Plasma/Serum Blood Alcohol 36.3 mg/dL (<10) Test 05/12/25 19:55 05/12/25 18:37 Hepatitis A IgM Antibody Negative Hepatitis B Surface Antigen Negative (Negative) Hepatitis B Core IgM Antibody Negative (Negative) Hepatitis C Antibody Negative (Negative) Erythrocyte Sedimentation Rate 7 mm/hr (0-20) Serum Osmolality 315 mOsm/kg (278-298) Beta-Hydroxybutyric Acid 0.379 mmol/L (< 0.4) Other Laboratory Tests 05/16/25 04:35 05/14/25 04:55 Brief Hx & Hospital Course: David Mason is a 55-year old male past medical history of CHF since 2006,defibrillator, DC, COPD on 2 L oxygen at home,type 2 DM with insulin usage and neuropathy who presented to the ED with the chief complaint of chest pain. The patient described the pain as pressure-like, left-sided, nonradiating, associated with nausea, dizziness, shortness of breath and a nonproductive cough. Patient mentioned that his shortness of breath increased on lying down. He had not been able to get medication refills since 2 months. The patient admitted to heavy alcohol use in the last 7 years with his last binge drinking episode 2 days before admission. Patient had severely elevated LFTS on admission , which gradually improved over the course of his hospital admission. Echo showed end-stage dilated cardiomyopathy with LVEF 5% and moderate degree of pulmonary hypertension. Hepatic panel was negative. Liver US showed surface nodularity suggesting cirrhosis. Abdomen/pelvic CT showed pulmonary edema, pleural effusion and cardiomegaly. Patient mentioned his shortness of breath improved since admission. He was discharged home with oxygen in a stable condition. All medications and recommendations were thoroughly explained to the patient and he demonstrated understanding of the same. He was asked to follow up at discharge clinic on 05/26/25 am clinic and with PCP. Patient could not be given anticoagulation due to high fall risk. Past medical history: CHF, DC, COPD on 2 L oxygen at home, type 2 diabetes and neuropathy Past surgical history: ICD placement, appendectomy Social & Personal history: Lives at home with family Smokin-10 years, 1 pack per day Alcohol: Heavy alcohol use for the last 7 years Drugs: Methamphetamine use Allergies: No known allergies General Appearance: Cooperative. Well developed. Well nourished. NAD Head Exam: Normal inspection Neck Exam: Normal inspection. Non-tender. Normal alignment Pulmonary/Respiratory: Chest non-tender. crackles in bilateral lung bases, no wheezing. Cardiovascular/Chest: Regular rate and rhythm. No murmurs. No JVD. Peripheral Pulses: 2+ Radial (R). 2+ Radial (L). 2+ Pedal (R). 2+ Pedal (L) Abdominal Exam: Normal bowel sounds. Soft. normal abdomen, no visible veins, Nontender. No hepatospenomegaly. No masses Ankle Exam: Negative ankle edema Lower extremities: Negative lower extremity edema Neuro/Mental Status: A&O x4. Coherent. Thoughts/Psych: Normal thought pattern. Appropriate mood and affect. Good judgement and insight Skin Exam: Normal inspection. Normal color. Warm. Dry Operations or Procedures 1.PROCEDURE(s): CXR1 - CHEST XRAY 1 VIEW REASON: cough, chest pain ORDER NUMBER(s): [id number], ACCESSION NUMBER(s): [id number] EXAM: XY CHEST XRAY 1 VIEW HISTORY: cough, chest pain TECHNIQUE: 1 view of the chest COMPARISON: None FINDINGS/IMPRESSION: LUNGS: No pleural effusion, consolidation, or pneumothorax. Question minimal volume overload MEDIASTINUM: Cardiomegaly. Left anterior chest cardiac device. BONES: No acute osseous abnormality. OTHER: None. 2.PROCEDURE(s): LIVUS - LIVER REASON: transaminitis ORDER NUMBER(s): [id number], ACCESSION NUMBER(s): [id number] INDICATION: transaminitis TECHNIQUE: Multiple real-time sonographic images were obtained of the right upper quadrant. COMPARISON: XY CHEST XRAY 1 VIEW on DOS: 05/12/25 FINDINGS: Liver is normal in size measuring 13.8 cm with coarsened heterogeneous echotexture and surface nodularity. The common duct measures 0.4 mm. The gallbladder is without evidence of stone or sludge. The gallbladder wall measures 0.2 mm and is within normal limits. The right kidney measures 10.5 cm. The right kidney is normal in contour, size, and shape. The echogenicity is normal. There is no hydronephrosis. The pancreas is not well visualized due to overlying bowel gas. Small volume of ascites. Bilateral pleural effusions. IMPRESSION: Coarsened heterogeneous liver with surface nodularity suggesting cirrhosis. 3.PROCEDURE(s): CAPIV - CT CHEST/AB/PL W CON- IV ONLY REASON: chest pain ORDER NUMBER(s): [id number], ACCESSION NUMBER(s): [id number] Exam: CT CT CHEST/AB/PL W CON- IV ONLY History: Chest pain. Comparison Study: XY CHEST XRAY 1 VIEW on DOS: 05/12/25. Technique: Multidetector spiral CT of the chest, abdomen and pelvis was performed from lower neck to pubic symphysis. Intravenous contrast was administered during this examination. Portal venous imaging was obtained. Coronal and sagittal multiplanar reformats were performed by the technologist on a separate workstation. Radiation Dose : 1. Chest/Abdomen/Pelvis: CTDIvol 29.57 mGy, DLP 1715.26 mGy*cm. Findings: Lower neck: Unremarkable thyroid. Lungs: Bilateral ground-glass opacities. Central airways: Patent. Pleura: Moderate right and small left pleural effusion. Heart/Vascular Structures: The heart is enlarged. No pericardial effusion. There are coronary artery calcifications. There is a pacemaker / AICD with leads in appropriate position. Lymph Nodes: No adenopathy. Chest wall: Soft tissue edema in the chest wall. Liver: The liver is small. No focal lesions. Diffusely hypoattenuating liver parenchyma consistent with hepatic steatosis. Normal hepatic vascular enhancement. Gallbladder and Biliary Tree: The gallbladder is unremarkable. No biliary ductal dilatation. Spleen: Unremarkable Pancreas: The pancreas is normal in appearance without focal lesions or abnormal enhancement. Adrenal Glands: Unremarkable. Kidneys: Kidneys demonstrate normal symmetric enhancement without focal lesions, calculi or hydronephrosis. Bladder: Unremarkable Bowel: The stomach is grossly normal in appearance. The small bowel is normal in caliber. No dilatation or mucosal thickening. Colonic diverticulosis without acute diverticulitis. No acute appendicitis. Peritoneum: No pneumoperitoneum. Small volume ascites. Lymphadenopathy: No mesenteric, retroperitoneal or periportal lymphadenopathy. Abdominal Wall and Mesentery: Diffuse body wall anasarca.. Vasculature: The visualized abdominal aorta is normal in size and caliber. Abdominal and pelvic vessels demonstrate normal enhancement. Diffuse vascular calcifications Pelvic Organs: Unremarkable Musculoskeletal: There is subacute to chronic appearing left posterior 9th and 10th rib fractures. IMPRESSION: 1. Bilateral ground-glass opacities may represent pulmonary edema. 2. Moderate right and small left pleural effusion. 3. Cardiomegaly. 4. Diffuse body wall anasarca. 5. Colonic diverticulosis without acute diverticulitis. 6. Small volume ascites in the abdomen/ pelvis. 7. Small liver. Correlation with LFTs is recommended. Cirrhosis is not excluded. 4.PROCEDURE(s): BLDVT - BiLat Lower DVT REASON: blood clots ORDER NUMBER(s): [id number], ACCESSION NUMBER(s): [id number] Bilateral lower extremity venous duplex Clinical History: blood clots Comparison: CT CT CHEST/AB/PL W CON- IV ONLY on DOS: 05/13/25, XY CHEST XRAY 1 VIEW on DOS: 05/12/25 Technique: Duplex Doppler evaluation of the deep venous systems of both lower extremities from the common femoral veins to the popliteal veins including color Doppler and spectral/pulsed waveform analysis was performed. Findings: RIGHT SIDE: The common femoral vein demonstrates appropriate compressibility and waveform variability. There is compressibility/patency of the great saphenous vein at the proximal thigh. The femoral vein demonstrates appropriate compressibility and waveform variability. The deep femoral vein demonstrates appropriate compressibility and waveform variability. The popliteal vein demonstrates appropriate compressibility and waveform variability. There is normal compressibility at the tibioperoneal trunk. LEFT SIDE: The common femoral vein demonstrates appropriate compressibility and waveform variability. There is compressibility/patency of the great saphenous vein at the proximal thigh. The femoral vein demonstrates appropriate compressibility and waveform variability. The deep femoral vein demonstrates appropriate compressibility and waveform variability. The popliteal vein demonstrates appropriate compressibility and waveform variability. There is normal compressibility at the tibioperoneal trunk. Impression: No right or left femoropopliteal venous thrombosis. Condition at Discharge: Fair Final Diagnosis/Problems List Sepsis likely due to atypical pneumonia Acute hypoxic respiratory failure likely due to acute on chronic HFrEF Acute on chronic systolic heart failure with EF 5% NSTEMI likely type 2 due to above Nonischemic dilated cardiomyopathy in the setting of chronic methamphetamine abuse Drug-induced/Alcoholic cardiomyopathy End-stage dilated cardiomyopathy Moderate pulmonary hypertension Acute decompensated liver cirrhosis with small volume ascites Acute Alcoholic hepatitis History of heavy alcohol abuse Acute severe Transaminitis due to above Acute on chronic Constipation Acute pulmonary edema,likely due to acute systolic heart failure exacerbation and decompensated liver cirrhosis Acute bilateral Pleural effusion in the setting of volume overload due to above Colonic diverticulosis without acute diverticulitis Type 2 diabetes with hyperglycemia,HbA1C 6.7 Methamphetamine and alcohol abuse disorder Ruled out DVT Discharge Disposition: Home Discharge Instruct/Medications Diet: Consistent carbohydrate, Cardiac 2g Na,low cholest Activity: No Restrictions, As Tolerated Follow Up/Referral: Follow up with PCP in 1 week Follow up in dc clinic in 1 week Scheduled Aspirin (Aspirin 81), 81 MG OR DAILY Atorvastatin Calcium (Atorvastatin Calcium), 1 TAB PO DAILY, (Reported) Doxycycline Hyclate (Doxycycline Hyclate), 1 TAB PO BID Empagliflozin (Jardiance), 10 MG PO DAILY, (Reported) Empagliflozin (Jardiance), 10 MG PO DAILY Folic Inwn-Aecaeyrfnt-Kwivbsaz (Folbic), 1 TAB PO DAILY, (Reported) Furosemide (Furosemide), 1 TAB PO DAILY, (Reported) Furosemide (Lasix), 40 MG PO DAILY Gabapentin (Once-Daily) (Gabapentin), 300 MG PO DAILY, (Reported) Lactulose (Lactulose), 10 GM PO DAILY Metformin Hydrochloride (Metformin Hcl Er), 1 TAB PO DAILY, (Reported) Metformin Hydrochloride (Metformin Hcl Er), 1 TAB PO BID Metoprolol Tartrate (Metoprolol Tartrate), 12.5 TAB PO BID Prednisone (Prednisone), 40 MG PO DAILY Sacubitril-Valsartan (Entresto 24-26 mg), 0.5 TAB PO DAILY Spironolactone (Spironolactone), 1 TAB PO DAILY Miscellaneous Medications Albuterol Sulfate (Ventolin Mdi), 90 MCG IN, (Reported) Ergocalciferol (Vitamin D2), 50,000 UNIT PO, (Reported) Discontinued Medications Carvedilol (Carvedilol), 1 TAB PO BID, (Reported) Digoxin (Digoxin), 125 MCG PO DAILY, (Reported) Lisinopril (Lisinopril), 1 TAB PO DAILY, (Reported) Nortriptyline Hcl (Pamelor Capsule), 2 CAP PO QPM, (Reported) Spironolactone (Aldactone), 1 TAB PO DAILY, (Reported) Discharge Statement: "Patient was advised to return to the ER or call 911 if any headaches, dizziness, shortness of breath, chest pain, abdominal pain, bleeding, fevers, or worsening of medical condition. Patient was counseled about treatment plan, medications, possible side effects, patientverbalized understanding. All questions were answered to the best of my ability. This discharge took greater then 30 minutes in planning, reviewing documentation, counseling the patient, and discussing with other team members." ASSESSMENT ASSESSMENT Assessment Sepsis likely due to Atypical / gram +/ gram - pneumonia Acute hypoxic respiratory failure likely due to acute on chronic HFrEF Acute on chronic systolic heart failure (HFrEF 5%) NSTEMI likely type 2 due to above Nonischemic dilated cardiomyopathy in the setting of chronic methamphetamine abuse Drug-induced/Alcoholic cardiomyopathy End-stage dilated cardiomyopathy Moderate pulmonary hypertension Acute decompensated liver cirrhosis w/o ascites Acute Alcoholic hepatitis History of heavy alcohol abuse Acute severe Transaminitis due to above Acute on chronic Constipation Pulmonary edema,likely due to acute systolic heart failure exacerbation and decompensated liver cirrhosis Acute bilateral Pleural effusion in the setting of volume overload due to above Colonic diverticulosis without acute diverticulitis Type 2 diabetes with HbA1C 6.7 Methamphetamine and alcohol abuse disorder Ruled out DVT Date of Service: May 16, 2025 Billing Provider: CHECO LAW MD Common Visit Codes: 26008-XNW/OBS DISCH DAY >30min NASIM RED RESIDENT May 16, 2025 14:38
--- NOTE | 2025-05-16 17:30 | DVHPN2 ---
Progress Note Date Seen: May 16, 2025 Resident Creating Document: MASHA HAMILTON Medical Necessity Reason Pt with a Central, PICC or Fol: No Subjective Review of Systems Reported to have bowel movement after being started on lactulose yesterday denies nausea or vomiting no abd pain reported Objective vital signs Vital Sign Date Time Temp Pulse Resp B/P (MAP) Pulse Ox O2 Delivery O2 Flow Rate FiO2 05/16/25 13:00 97.4 104 19 115/86 (96) 100 97.4 05/16/25 11:56 Nasal Cannula* 4 36 Total Intake and Output 05/15/25 05/15/25 05/16/25 15:00 23:00 07:00 Intake Total 500 ml 700 ml Balance 500 ml 700 ml Examination Gen - no pallor, positive scleral icterus Skin - Patients skin is warm and dry. HEENT - normocephalic, atraumatic, dry mucous membranes. Neck - supple, no lymphadenopathy Pulmonary - B/L diffuse rales cardiovascular - regular S1,S2 heard GI - soft nontender abdomen. Flank fullness Bowel sounds normoactive. Neurological - Patient is alert and oriented x4 and is following commands, no weakness laboratory and microbiology Laboratory Tests 05/16/25 04:35 05/14/25 04:55 Test 05/16/25 04:35 Range/Units Serum Glucose 190 H 74-106 mg/dL Microbiology Date/Time Source Procedure Growth Status 05/13/25 08:00 Nose MRSA Screen - Final Complete 05/12/25 19:55 Blood Blood Culture - Preliminary NO GROWTH AFTER 72 HOURS OF INCUBATION. Resulted Problem List/Assessment/Plan Problem List/Assessment/Plan Alcoholic hepatitis ( MDF 49.9 initially, improving ) Probable liver cirrhosis ( MELD Na 24 initially, improving) Fluid overload likely d/t CHF exacerbation/decompensated liver cirrhosis Hyperbilirubinemia JULIANNA likely hemodynamically mediated NSTEMI likely type 2 Acute on chronic systolic heart failure Methamphetamine use Plan - continue with diuresis with Lasix and spironolactone - steroids given high MDF for alcoholic hepatitis - acute hepatitis panel negative - lactulose 30 mL daily - advised to strictly avoid alcohol - monitor LFTs - thiamine - PUD prophylaxis Plan discussed with Dr. Coleman Plan discussed with: Patient, Son MASHA HAMILTON RESIDENT May 16, 2025 17:30
== END 2025-05-16 16:35 | disposition home or self-care (01) | DRG 720 ==
LOC: ER 17:46 → OVERFLOW 22:06 → TELE-WESTW 05-13 02:39
PROVIDERS: ADMIT Internal Medicine; ATTEND Internal Medicine
DX: A41.50 Gram-negative sepsis, unspecified (principal); I50.23 Acute on chronic systolic (congestive) heart failure; J96.01 Acute respiratory failure with hypoxia; J15.69 Pneumonia due to other Gram-negative bacteria; I25.110 Atherosclerotic heart disease of native coronary artery with unstable angina pectoris; I27.20 Pulmonary hypertension, unspecified; I21.A1 Myocardial infarction type 2; J15.9 Unspecified bacterial pneumonia; N17.9 Acute kidney failure, unspecified; F10.129 Alcohol abuse with intoxication, unspecified; E11.65 Type 2 diabetes mellitus with hyperglycemia; K70.10 Alcoholic hepatitis without ascites; F15.10 Other stimulant abuse, uncomplicated; K57.90 Diverticulosis of intestine, part unspecified, without perforation or abscess without bleeding; I42.8 Other cardiomyopathies; R74.01 Elevation of levels of liver transaminase levels; K57.30 Diverticulosis of large intestine without perforation or abscess without bleeding; Z20.822 Contact with and (suspected) exposure to COVID-19; E80.6 Other disorders of bilirubin metabolism; I42.0 Dilated cardiomyopathy; I42.6 Alcoholic cardiomyopathy; I42.7 Cardiomyopathy due to drug and external agent; T50.995A Adverse effect of other drugs, medicaments and biological substances, initial encounter; K70.31 Alcoholic cirrhosis of liver with ascites; K59.09 Other constipation; Z79.899 Other long term (current) drug therapy; I25.2 Old myocardial infarction; Y90.9 Presence of alcohol in blood, level not specified; Y92.89 Other specified places as the place of occurrence of the external cause
CPT/HCPCS: 36415; 36600; 71045; 71260; 74177; 76705; 80048; 80053; 80074; 80076; 80307; 80320; 81001; 82010; 82248; 82805; 82962; 83036; 83605; 83690; 83735; 83880; 83930; 84484; 85025; 85379; 85610; 85652; 85730; 86141; 87040; 87081; 87426; 87804; 93005; 93306; 93970; 94640; 96361; 96365; 99291; G0378; J1815; J2543; J3430; J3490

== ENCOUNTER 2025-05-17 02:57 | Inpatient (IN) | payer MEDICAID ==
[~2025-05-17] VITALS: Ht 172.7 cm; Wt 77.0 kg
[~2025-05-17 02:57] MED LIST: ALBUAER3 IN; ASPI-498 OR; ATOR40TA52 PO; DOXY-286 PO; EMPA1TAB PO; ERGO2000 PO; FOLITAB22 PO; FURO1TAB31 PO; FURO40TA4 PO; GABA300T4 PO; LACT10SO3 PO; METF-490 PO; METO25TA5 PO; PRED20TA2 PO; SACU1TAB PO; SPIR50TA5 PO
--- NOTE | 2025-05-17 03:56 | DVH ---
CHEST RADIOGRAPH Indication: SOB Technique: Single frontal view of the chest was obtained COMPARISON: CT CT CHEST/AB/PL W CON- IV ONLY on DOS: 05/13/25, XY CHEST XRAY 1 VIEW on DOS: 05/12/25 FINDINGS: Lines and Tubes: None. Left anterior chest wall dual lead cardiac pacing device. Lungs: Clear Pleura: No effusion. No pneumothorax. Cardiomediastinal contours: Cardiomegaly. Bones: Unremarkable IMPRESSION: 1. Cardiomegaly.
[2025-05-17 04:02] LABS: Hematocrit 39.2 % (41.0-53.0); Hemoglobin 12.9 g/dL (13.5-17.5); Mean Corpuscular Hemoglobin 29.8 pg (28.0-32.0); Mean Corpuscular Volume 90.6 fL (80.0-100.0); Nucleated Red Blood Cells % 0.4 %
[2025-05-17 04:13] LABS: Alanine Aminotransferase 442 U/L (7-40); Albumin 3.8 g/dL (3.2-4.8); Alkaline Phosphatase 165 U/L (46-116); Anion Gap 11 (5-15); BUN/Creatinine Ratio 25.7 (10.0-20.0); Blood Urea Nitrogen 36 mg/dL (9-23); Calcium 8.8 mg/dL (8.7-10.4); Carbon Dioxide 21 mmol/L (20-31); Chloride 96 mmol/L (98-107); Glucose 231 mg/dL (74-106); Magnesium 2.0 mg/dL (1.6-2.6); Potassium 4.7 mmol/L (3.5-5.1); Sodium 128 mmol/L (136-145); Total Protein 7.5 g/dL (5.7-8.2)
[2025-05-17 04:15] LABS: Bilirubin, Total 2.1 mg/dL (0.2-1.0)
--- NOTE | 2025-05-17 04:24 | ED.PDOC ---
SOB-HPI HPI Comments HPI: 55-year-old male who came to ER due to shortness of breath He was discharged here yesterday, diagnosed with Sepsis likely due to atypical pneumonia Acute hypoxic respiratory failure likely due to acute on chronic HFrEF Acute on chronic systolic heart failure with EF 5% NSTEMI likely type 2 due to above Nonischemic dilated cardiomyopathy in the setting of chronic methamphetamine abuse Drug-induced/Alcoholic cardiomyopathy End-stage dilated cardiomyopathy Moderate pulmonary hypertension Acute decompensated liver cirrhosis with small volume ascites Acute Alcoholic hepatitis History of heavy alcohol abuse Acute severe Transaminitis due to above Acute on chronic Constipation Acute pulmonary edema,likely due to acute systolic heart failure exacerbation and decompensated liver cirrhosis Acute bilateral Pleural effusion in the setting of volume overload due to above Colonic diverticulosis without acute diverticulitis Type 2 diabetes with hyperglycemia,HbA1C 6.7 Methamphetamine and alcohol abuse disorder Ruled out DVT Patient states as he got home he only felt worse so he decided come back to the ER. Patient is saturating 100% at 4 L/min Past Medical History: CHF, mi, cardiomyopathy, pulmonary hypertension, liver cirrhosis, hepatitis, Surgical History: Denies Family History: Denies Personal and Social History: Chronic alcohol drinker, methamphetamine user MCMAHAN: HPI: Poor Historian. Past Medical History: Past Surgical History: REVIEW OF SYSTEMS: CONSTITUTIONAL: Denies acute: fever, diaphoresis, chills, HEAD: Denies acute: headache, photophobia Eyes: Denies acute: Double vision, vision loss, eye pain, eye discharge. EARS: Denies acute: tinnitus, hearing loss, ear discharge, ear pain, THROAT: Denies acute: sore throat, swelling, difficulty swallowing , pain with swallowing, change in voice. NECK: Denies acute: neck pain, neck swelling, stiff neck. HEART: Denies acute : chest pain, palpitations, LUNGS: Denies acute: , wheezing, cough, hemoptysis ABDOMEN: Denies acute: abdominal pain, Nausea, Vomiting, diarrhea, melena , hematemesis, hematochezia SKIN: Denies acute: rash, redness, lesions, itchiness. EXTREMITIES: Denies acute: calf pain, numbness, tingling, weakness, denies pain in extremity. Denies acute: Low back pain. Neuro: Denies acute: focal neurological deficit, motor or sensory focal neurological deficit, tremors, seizure like activity, confusion, dizziness, change in mental status, loss of bowel or bladder function, cauda equina like symptoms. : Denies acute: dysuria, hematuria, flank pain, increase in urinary frequency. PSYCH: Denies acute: hallucination, suicidal ideation, homicidal ideation. PHYSICAL EXAM: General: ----mild----acute distress, awake and alert. Head: normocephalic, atraumatic. No raccoon's eyes, no anders sign. Neck: supple, trachea is midline, no swelling. Throat: Normal phonation. Eyes:, no erythema, no purulent discharge, no proptosis, no icterus. Heart: regular rate, regular rhythm, no significant murmur appreciated. Lungs: no apparent respiratory distress, Able to speak in full sentences. No wheezing, no rhonchi, no crackles. No stridors Clear to auscultation bilaterally. Abdomen: non tender to palpation, non distended, soft, no guarding, no rebound, + bowel sounds. Neuro: Awake, Alert, oriented to name, self, situation, follows commands GCS=15. Speech is normal. Skin: no petechia, no purpura, no cyanosis, non-pale, not jaundice. Lower extremities: --2/4 b/l - Pitting edema no deformity, no focal swelling, no calf TTP. Makes eye contact. Face: no apparent facial droop. ED COURSE: DISCLAIMER: This medical document was created using an electronic medical record system with voice recognition software and computerized dictation system. Although this document has been carefully reviewed, there might still be some phonetic and typographical errors. Occasional wrong-word or "sound-alike" substitutions may have occurred due to the inherent limitations of voice recognition software. These areas are purely typographical due to imperfections of the software programs and do not reflect any compromise in the patient's medical care. Please read the chart carefully and recognize, using context, where these substitutions have occurred. Chief Complaint: Shortness of Breath Time Seen by MD: 04:24 Reviewed notes: Nurses Notes, Allergies Information Source: Patient Mode of Arrival: Ambulatory Past Medical History PAST MEDICAL HISTORY: CHF, NC Social History Alcohol: Heavy Drugs: Methamphetamine Was a procedure done? Was a procedure done?: No Differential Dx Differential Diagnosis: Other (DDx include ACS, unstable angina, anxiety, PE, pneumothroax, neoplasm, cardiac ischemia, COPD, asthma, CHF, pleural effusion, tobacco abuse, pneumonia, hypoxia, hypercapnia, anemia., infection/sepsis., pulmonary edema. Asthma, Cardiac tamponade, infection.) X-Ray, Labs, Meds, VS Vital Signs Date Time Temp Pulse Resp B/P (MAP) Pulse Ox O2 Delivery O2 Flow Rate FiO2 05/17/25 03:09 97.0 111 22 128/69 100 97.0 Lab Test 05/17/25 03:32 Range/Units White Blood Count 10.3 # 4.4-10.8 10^3/uL Red Blood Count 4.32 L 4.5-5.90 10^6/uL Hemoglobin 12.9 L 13.5-17.5 g/dL Hematocrit 39.2 #L 41.0-53.0 % Mean Corpuscular Volume 90.6 80.0-100.0 fL Mean Corpuscular Hemoglobin 29.8 28.0-32.0 pg Mean Corpuscular Hemoglobin Concent 32.9 32.0-36.0 g/dL Red Cell Distribution Width 18.0 H 11.8-14.3 % Platelet Count 207 # 140-450 10^3/uL Mean Platelet Volume 8.6 6.9-10.8 fL Neutrophils (%) (Auto) 91.3 H 37.0-80.0 % Lymphocytes (%) (Auto) 2.8 L 10.0-50.0 % Monocytes (%) (Auto) 5.9 0.0-12.0 % Eosinophils (%) (Auto) 0.0 0.0-7.0 % Basophils (%) (Auto) 0.0 0.0-2.0 % Neutrophils # (Auto) 9.4 H 1.6-8.6 10 ^3/uL Lymphocytes # (Auto) 0.3 L 0.4-5.4 10 ^3/uL Monocytes # (Auto) 0.6 0-1.3 10 ^3/uL Eosinophils # (Auto) 0 0-0.8 10 ^3/uL Basophils # (Auto) 0 0-0.2 10 ^3/uL Nucleated Red Blood Cells 0.4 % Sodium Level 128 L 136-145 mmol/L Potassium Level 4.7 3.5-5.1 mmol/L Chloride Level 96 L 98-107 mmol/L Carbon Dioxide Level 21 20-31 mmol/L Anion Gap 11 5-15 Blood Urea Nitrogen 36 H 9-23 mg/dL Creatinine 1.40 H 0.700-1.30 mg/dL Glomerular Filtration Rate Calc 60 >90 mL/min BUN/Creatinine Ratio 25.7 H 10.0-20.0 Serum Glucose 231 H 74-106 mg/dL Calcium Level 8.8 8.7-10.4 mg/dL Magnesium Level 2.0 1.6-2.6 mg/dL Total Bilirubin 2.1 H 0.2-1.0 mg/dL Aspartate Amino Transferase (AST) 96 H 13-40 U/L Alanine Aminotransferase (ALT) 442 H 7-40 U/L Alkaline Phosphatase 165 H 46-116 U/L Troponin I High Sensitivity 19 </=54 ng/L B-Type Natriuretic Peptide 2763.55 0-100 pg/mL Total Protein 7.5 5.7-8.2 g/dL Albumin 3.8 3.2-4.8 g/dL [place] [address] Ph: [phone] DIAGNOSTIC IMAGING Diagnostic Imaging Report : [id number] Signed PATIENT: HERMILA MCMAHAN ACCT: [id number] UNIT: [id number] : 1970 LOC: ER ROOM / BED: / AGE / SEX: 55 / M ADM STATUS: REG ER SERVICE [id number] ORDERING PHYSICIAN: JIMMIE VALERO DO PROCEDURE(s): CXRP - CHEST PORTABLE REASON: SOB ORDER NUMBER(s): [id number], ACCESSION NUMBER(s): [id number] CHEST RADIOGRAPH Indication: SOB Technique: Single frontal view of the chest was obtained COMPARISON: CT CT CHEST/AB/PL W CON- IV ONLY on DOS: 05/13/25, XY CHEST XRAY 1 VIEW on DOS: 05/12/25 FINDINGS: Lines and Tubes: None. Left anterior chest wall dual lead cardiac pacing device. Lungs: Clear Pleura: No effusion. No pneumothorax. Cardiomediastinal contours: Cardiomegaly. Bones: Unremarkable IMPRESSION: 1. Cardiomegaly. ATED BY: DENYS BARRIENTOS MD DICTATED DATE/TIME: 05/17/25352 SIGNED BY: DENYS BARRIENTOS MD SIGNED DATE/TIME: 05/17/25352 CC: Time of 1ST Reevaluation: 04:19 Reevaluation 1ST: Unchanged Patient Education/Counseling: Diagnosis, Treatment Family Education/Counseling: Other Comments MDM: patient presented with the above HPI.--dyspnea----workup was initiated. patient was found with the above mentioned diagnosis. the following medications were ordered: please refer to order lists of meds and tests obtained by myself Dr. Valero. Patient ED course and VS have been stabilized. Patient has been reassessed in the ED and remained in a stable condition. Pertinent incidental findings were discussed with the patient and/or family. Patient/family voices understanding and is agreeable with plan. Patient has been observed in the ED adequate length of time to insure improvement/stability. Escalation of care considered: Consideration of escalation to observation or admission Patient was ADMITTED to the medicine team for further evaluation and treatment of their presentation. All the reports of any imaging studies that were ordered by myself were reviewed by myself. SEPSIS Sepsis Screen Date sepsis recognized/suspect: May 17, 2025 Time Sepsis recognized/suspect: 314 Recent Procedure: Yes On Antibiotic Therapy: Yes Respiratory Rate >20: Yes Heart Rate >90: Yes Temp<36 C (96.8 F) or >38.3 C: No SBP <90 or MAP <65 mmHG: No New Acute Mental Status Change: No Is the patient on CPAP, BIPAP,: No Physician Orders Transportation Coordinator (05/17/25 ) Heplock Iv (05/17/25 ) Drug Screen (05/17/25 03:21) Chest Portable (05/17/25 03:21) Electrocardigram (05/17/25 03:21) Troponin-I Hs (05/17/25 04:21) Troponin-I Hs (05/17/25 06:21) Vital Signs Date Time Temp Pulse Resp B/P (MAP) Pulse Ox O2 Delivery O2 Flow Rate FiO2 05/17/25 03:09 97.0 111 22 128/69 100 97.0 Laboratory Tests Test 05/17/25 03:32 White Blood Count 10.3 10^3/uL (4.4-10.8) # Departure 1 Departure Time of Disposition: 04:29 Impression: Primary Impression: Acute exacerbation of CHF (congestive heart failure) Additional Impressions: Elevated LFTs Hyponatremia Disposition: ADMITTED INPATIENT Admit to: Tele Condition: Guarded Discharged With: Self Critical Care Note Critical Care Time?: No I personally scribed for IJMMIE VALERO DO ([email or web address]) on 05/17/25 at 04:24. Electronically submitted by Jose Kat ([facility]). I personally scribed for JIMMIE VALERO DO ([email or web address]) on 05/17/25 at 04:26. Electronically submitted by Jose Kat ([email or web address]). JIMMIE VALERO DO May 17, 2025 04:24
[2025-05-17] MEDS: FUROSEMIDE 40 MG/4 ML VIAL IV ONE (07:01)
[2025-05-17 08:00] VITALS: PULSE 94; RESP 20; O2SAT 100
[2025-05-17 10:23] LABS: Urine Protein, UAD Negative (Negative)
[2025-05-17 10:40] LABS: Opiate Scree,Urine Neg (NEGATIVE)
[2025-05-17 10:54] LABS: Amphetamine Screen, Urine Neg (NEGATIVE); Barbiturate Scree,Urine Neg (NEGATIVE); Benzodiazephine Screen, Urine Neg (NEGATIVE); Cannabinoid Screen, Urine Neg (NEGATIVE); Cocaine Screen, Urine Neg (NEGATIVE); Phencyclidine Screen, Urine Neg (NEGATIVE)
[2025-05-17] MEDS ORDERED: NITROGLYCERIN 0.4 MG SL TAB SL PRN (11:45)
[2025-05-17] MEDS ORDERED: ONDANSETRON HCL 4 MG/2 ML VIAL IV PRN (11:45)
[2025-05-17] MEDS ORDERED: DOCUSATE SOD 100 MG CAP PO PRN (11:45)
[2025-05-17] MEDS ORDERED: MORPHINE SULFATE INJ 2 MG/ml SYRG IV PRN (11:45)
[2025-05-17] MEDS ORDERED: ACETAMINOPHEN 325 MG TAB PO PRN (11:45)
[2025-05-17] MEDS ORDERED: DEXTROSE (50%) 50ML SYRG IV PRN (12:00)
--- NOTE | 2025-05-17 12:32 | DVHHP2 ---
History of Present Illness Reason for Visit: Shortness of breath History of Present Illness David Mason is a 55-year-old male with past medial history of diabetes, hypertension, hyperlipidemia, CHF, PA, alcoholic liver cirrhosis, COPD on home oxygen, and neuropathy who came to the hospital due to shortness of breath. Patient was recently admitted here and discharged yesterday for similar complaints. States he came back because he was hurting, shortness of breath, and his swelling was increasing. Patient had an ECHO completed that showed his EF is 5%. When he was discharged he was told that due to low his low function of his heart and liver cirrhosis there wasn't much more they could do for him. He would like to look into hospice. Cardiovascular: CHF, HTN, hyperipidemia, Other (AICD) Hepatobiliary: Cirrhosis Endocrine: Diabetes Past Surgical History: Appendectomy, Other (AICD) Smoke: No ALCOHOL: heavy Drugs: Other (Methamphetamines) Lives: with Family Domestic Violence: Neg Review of Systems Constitutional: Yes: Weakness, Malaise; No: Fever, Chills, Sweats, Other Eyes: No: Pain, Vision change, Conjunctivae inflammation, Eyelid inflammation, Other, Redness ENT: No: Ear pain, Ear discharge, Nose pain, Nose discharge, Nose congestion, Mouth pain, Mouth swelling, Throat pain, Throat swelling, Other Respiratory: Cough, Shortness of breath, SOB with excertion; No: Dry, Wheezing, Hemoptysis, Pleuritic Pain, Sputum, Wheezing, Other Cardiovascular: No: Chest Pain, Palpitations, Orthopnea, Paroxysmal Noc. Dyspnea, Edema, Lt Headedness, Other Gastrointestinal: No: Nausea, Vomiting, Abdominal Pain, Diarrhea, Constipation, Melena, Hematochezia, Other Genitourinary: No Dysuria, No Frequency, No Incontinence, No Hematuria, No Retention, No Other Musculoskeletal: No: other, neck pain, shoulder pain, arm pain, back pain, hand pain, leg pain, foot pain Skin: No: Rash, Lesions, Jaundice, Bruising, Other Neurological: No: Weakness, Numbness, Incoordination, Change in speech, Confusion, Seizures, Other Allergies: Coded Allergies: NO KNOWN ALLERGIES (Unverified , 05/12/25) Medications Current Medications Medications Dose Ordered Sig/Demetria Route Start Time Stop Time Status Last Admin Dose Admin Sodium Chloride 10 ml Q8HR IV 05/17/25 14:00 UNV Acetaminophen/ Hydrocodone Bitart 1 tab Q4HP PRN PO 05/17/25 11:45 UNV Ondansetron HCl 4 mg Q4HP PRN IV 05/17/25 11:45 UNV Docusate Sodium 100 mg BIDPRN PRN PO 05/17/25 11:45 UNV Acetaminophen 650 mg Q6HP PRN PO 05/17/25 11:45 UNV Nitroglycerin 0.4 mg Q5MINP PRN SL 05/17/25 11:45 UNV Morphine Sulfate 2 mg Q30M PRN IV 05/17/25 11:45 UNV Aspirin 81 mg DAILY PO 05/18/25 10:00 UNV Empaglifozin 10 mg DAILY PO 05/18/25 10:00 UNV Metoprolol Tartrate 312.5 mg BID PO 05/17/25 22:00 UNV Sacubitril/ Valsartan 0.5 tab DAILY PO 05/18/25 10:00 UNV Patient Own Medication 1 tab DAILY PO 05/18/25 10:00 UNV Patient Own Medication 1 tab BID PO 05/17/25 22:00 UNV Patient Own Medication 1 tab DAILY PO 05/18/25 10:00 UNV Patient Own Medication 300 mg DAILY PO 05/18/25 10:00 UNV Patient Own Medication 10 gm DAILY PO 05/18/25 10:00 UNV Patient Own Medication 40 mg DAILY PO 05/18/25 10:00 UNV Patient Own Medication 1 tab DAILY PO 05/18/25 10:00 UNV Exam Vital Signs Vital Signs Date Time Temp Pulse Resp B/P (MAP) Pulse Ox O2 Delivery O2 Flow Rate FiO2 05/17/25 08:00 94 20 100 Nasal Cannula* 4 36 05/17/25 08:00 97.6 103/77 (86) 97.6 General Appearance: Alert, Oriented X3, Cooperative, moderate distress HEENT: Atraumatic, PERRLA, Mucous membr. moist/pink Respiratory: Other (Diminshed breath sounds) Cardiovascular: Normal S1, Normal S2, Other (ST) Abdominal: Normal bowel sounds, Soft, No tenderness Extremities: No clubbing, No cyanosis, Other (Bilateral lower extremity edema, testicular edema) Skin: No rashes, No breakdown, No significant lesion Neuro: Normal gait, Normal speech, Strength at 5/5 X4 ext Psych/Mental Status: Mental status NL, Mood NL Labs/Xrays Labs Test 05/17/25 08:30 05/17/25 06:32 05/17/25 03:32 Range/Units Urine Color Light-yellow Yellow Urine Clarity Clear Clear Urine pH 5.5 5.0-9.0 Urine Specific [place] 1.012 1.001-1.035 Urine Protein Negative Negative Urine Ketones Negative Negative Urine Blood Negative Negative /uL Urine Nitrite Negative Negative Urine Bilirubin Negative Negative Urine Urobilinogen Normal Negative mg/dL Urine Leukocyte Esterase Negative Negative /uL Urine RBC <1 0 - 3 /hpf Urine Microscopic WBC 1 0-3 /HPF Urine Squamous Epithelial Cells None seen <5 /hpf Urine Bacteria None seen None Seen /hpf Urine Hyaline Casts Few 0 - 2 /lpf Urine Glucose Normal Normal mg/dL Urine Opiates Screen Neg NEGATIVE Urine Fentanyl Screen Neg NEGATIVE Urine Barbiturates Screen Neg NEGATIVE Urine Phencyclidine Screen Neg NEGATIVE Urine Amphetamines Screen Neg NEGATIVE Urine Benzodiazepines Screen Neg NEGATIVE Urine Cocaine Screen Neg NEGATIVE Urine Cannabinoids Screen Neg NEGATIVE Troponin I High Sensitivity 19 </=54 ng/L White Blood Count 10.3 # 4.4-10.8 10^3/uL Red Blood Count 4.32 L 4.5-5.90 10^6/uL Hemoglobin 12.9 L 13.5-17.5 g/dL Hematocrit 39.2 #L 41.0-53.0 % Mean Corpuscular Volume 90.6 80.0-100.0 fL Mean Corpuscular Hemoglobin 29.8 28.0-32.0 pg Mean Corpuscular Hemoglobin Concent 32.9 32.0-36.0 g/dL Red Cell Distribution Width 18.0 H 11.8-14.3 % Platelet Count 207 # 140-450 10^3/uL Mean Platelet Volume 8.6 6.9-10.8 fL Neutrophils (%) (Auto) 91.3 H 37.0-80.0 % Lymphocytes (%) (Auto) 2.8 L 10.0-50.0 % Monocytes (%) (Auto) 5.9 0.0-12.0 % Eosinophils (%) (Auto) 0.0 0.0-7.0 % Basophils (%) (Auto) 0.0 0.0-2.0 % Neutrophils # (Auto) 9.4 H 1.6-8.6 10 ^3/uL Lymphocytes # (Auto) 0.3 L 0.4-5.4 10 ^3/uL Monocytes # (Auto) 0.6 0-1.3 10 ^3/uL Eosinophils # (Auto) 0 0-0.8 10 ^3/uL Basophils # (Auto) 0 0-0.2 10 ^3/uL Nucleated Red Blood Cells 0.4 % Sodium Level 128 L 136-145 mmol/L Potassium Level 4.7 3.5-5.1 mmol/L Chloride Level 96 L 98-107 mmol/L Carbon Dioxide Level 21 20-31 mmol/L Anion Gap 11 5-15 Blood Urea Nitrogen 36 H 9-23 mg/dL Creatinine 1.40 H 0.700-1.30 mg/dL Glomerular Filtration Rate Calc 60 >90 mL/min BUN/Creatinine Ratio 25.7 H 10.0-20.0 Serum Glucose 231 H 74-106 mg/dL Calcium Level 8.8 8.7-10.4 mg/dL Magnesium Level 2.0 1.6-2.6 mg/dL Total Bilirubin 2.1 H 0.2-1.0 mg/dL Aspartate Amino Transferase (AST) 96 H 13-40 U/L Alanine Aminotransferase (ALT) 442 H 7-40 U/L Alkaline Phosphatase 165 H 46-116 U/L B-Type Natriuretic Peptide 2763.55 0-100 pg/mL Total Protein 7.5 5.7-8.2 g/dL Albumin 3.8 3.2-4.8 g/dL CHEST RADIOGRAPH FINDINGS: Lines and Tubes: None. Left anterior chest wall dual lead cardiac pacing device. Lungs: Clear Pleura: No effusion. No pneumothorax. Cardiomediastinal contours: Cardiomegaly. Bones: Unremarkable IMPRESSION: 1. Cardiomegaly. SEPSIS Sepsis Screen Date sepsis recognized/suspect: May 17, 2025 Time Sepsis recognized/suspect: 314 Recent Procedure: Yes On Antibiotic Therapy: Yes Respiratory Rate >20: Yes Heart Rate >90: Yes Temp<36 C (96.8 F) or >38.3 C: No SBP <90 or MAP <65 mmHG: No New Acute Mental Status Change: No Is the patient on CPAP, BIPAP,: No Physician Orders Cardiac Diet-2gna,Lofat,Lochol (05/17/25 Breakfast) Admit (05/17/25 11:41) Code Status (05/17/25 11:41) Sodium Chloride Lock (Saline Lock Ns) (05/17/25 14:00) Hydrocodone-Acet 5/325mg Tab ([place] 5/32 (05/17/25 11:45) Ondansetron Hcl (Zofran) (05/17/25 11:45) Docusate Sodium Capsule (Colace Capsule) (05/17/25 11:45) Complete Blood Count (05/18/25 04:00) Comprehensive Metabolic Panel (05/18/25 04:00) Condition: Critical (05/17/25 11:41) Acetaminophen Tablet (Tylenol Tablet) (05/17/25 11:45) Nitroglycerin Sublingual (Ntrostat Subli (05/17/25 11:45) Morphine Sulfate Injection (05/17/25 11:45) Stat Ekg For Chest Pain (05/17/25 11:41) Notify Md Of Changes From Base (05/17/25 11:41) Watch Parts Inspector For 24 Hours (05/17/25 11:41) Emergency Dysrhythmia Protocol (05/17/25 11:41) Rhythm Strips Once Every Shift (05/17/25 11:41) Oxygen By Nasal Cannula (05/17/25 11:41) Aspirin Enteric Coated Tablet (Ecotrin E (05/18/25 10:00) Empagliflozin (Jardiance) (05/18/25 10:00) Metoprolol Tartrate Tablet (Lopressor Ta (05/17/25 22:00) Sacubitril-Valsartan (Entresto 24-26 Mg (05/18/25 10:00) (Nf) Atorvastatin Calcium (05/18/25 10:00) (Nf) Doxycycline Hyclate (05/17/25 22:00) (Nf) Folic Zmmh-Yhiwehoplq-Zcrfdcly (Fol (05/18/25 10:00) (Nf) Gabapentin (Once-Daily) (Gabapentin (05/18/25 10:00) (Nf) Lactulose (05/18/25 10:00) (Nf) Prednisone (05/18/25 10:00) (Nf) Spironolactone (05/18/25 10:00) Vital Signs Date Time Temp Pulse Resp B/P (MAP) Pulse Ox O2 Delivery O2 Flow Rate FiO2 05/17/25 08:00 94 20 100 Nasal Cannula* 4 36 05/17/25 08:00 97.6 94 20 103/77 (86) 100 97.6 05/17/25 07:43 99 18 100 Nasal Cannula 05/17/25 07:43 98.3 99 18 117/82 (94) 100 98.3 Laboratory Tests Test 05/17/25 03:32 White Blood Count 10.3 10^3/uL (4.4-10.8) # Assessment/Plan Assessment/Plan Assessment: Acute exacerbation of CHF (congestive heart failure), Drug-induced/Alcoholic cardiomyopathy, Hyperglycemia, Pulmonary hypertension, Liver cirrhosis, Transaminitis, Diabetes, Methamphetamine and alcohol abuse, Plan: Admit to Tele, Consider cardiology consult, IV Lasix, Fluid restrictions, Daily weight, Consider social service consult, Accu checks Q AC&HS with sliding scale, Home medications reconciled, Plan discussed with: Patient, Other (Aunt) My Orders Orders - KEI NASCIMENTO Procedure Category Date Status Time Admit ADMIT 05/17/25 Transmitted 11:41 Code Status CODE 05/17/25 Transmitted 11:41 Sodium Chloride Lock PHA 05/17/25 Logged (Saline Lock Ns) 14:00 Hydrocodone-Acet PHA 05/17/25 Logged 5/325mg Tab ([place] 11:45 Ondansetron Hcl PHA 05/17/25 Logged (Zofran) 11:45 Docusate Sodium PHA 05/17/25 Logged Capsule (Colace 11:45 Complete Blood Count LAB 05/18/25 Verified 04:00 Comprehensive LAB 05/18/25 Verified Metabolic Panel 04:00 Condition: Critical AMIE 05/17/25 In Process 11:41 Acetaminophen Tablet PHA 05/17/25 Logged (Tylenol Tablet) 11:45 Nitroglycerin PHA 05/17/25 Logged Sublingual (Ntrostat 11:45 Morphine Sulfate PHA 05/17/25 Logged Injection 11:45 Stat Ekg For Chest AMIE 05/17/25 In Process Pain 11:41 Notify Of Changes AMIE 05/17/25 In Process From Base 11:41 Watch Parts Inspector For AMIE 05/17/25 In Process 24 Hours 11:41 Emergency Dysrhythmia AMIE 05/17/25 In Process Protocol 11:41 Rhythm Strips Once AMIE 05/17/25 In Process Every Shift 11:41 Oxygen By Nasal RT 05/17/25 Transmitted Cannula 11:41 Aspirin Enteric PHA 05/18/25 Logged Coated Tablet 10:00 Empagliflozin PHA 05/18/25 Logged (Jardiance) 10:00 Metoprolol Tartrate PHA 05/17/25 Logged Tablet (Lopressor Ta 22:00 Sacubitril-Valsartan PHA 05/18/25 Logged (Entresto 24-26 Mg 10:00 (Nf) Atorvastatin PHA 05/18/25 Logged Calcium 10:00 (Nf) Doxycycline PHA 05/17/25 Logged Hyclate 22:00 (Nf) Folic PHA 05/18/25 Logged Ythd-Asvizlffbm-Ozmwdmux 10:00 (Nf) Gabapentin PHA 05/18/25 Transmitted (Once-Daily) 10:00 (Nf) Lactulose PHA 05/18/25 Logged 10:00 (Nf) Prednisone PHA 05/18/25 Logged 10:00 (Nf) Spironolactone PHA 05/18/25 Logged 10:00 Date of Service: May 17, 2025 Billing Provider: KEI NASCIMENTO Common Visit Codes: [id number] INP/OBS CARE (MOD) KEI NASCIMENTO May 17, 2025 12:32
[2025-05-17] MEDS: SODIUM CHLOR 0.9% PF (SALINE LOCK) 10ML VIAL/SYR IV SCH (14:00)
[2025-05-17] MEDS: HYDROcodone-ACET 5/325MG TAB PO PRN (15:52)
[2025-05-17 16:44] VITALS: BP 113/61; PULSE 105; RESP 18; TEMP 97.6; O2SAT 100
[2025-05-17] MEDS: FUROSEMIDE 40 MG/4 ML VIAL IV SCH (18:35)
[2025-05-17] MEDS: ACCU-CHEK COMFORT CURVE STRIP VI SCH (18:37)
[2025-05-17] MEDS: InsuLIN REG 1unit/0.01ml Soln (100units/ml) SC SCH (18:38)
[2025-05-17 21:00] VITALS: BP 119/84; PULSE 100; RESP 20; TEMP 97.7; O2SAT 100
[2025-05-17] MEDS ORDERED: METOPROLOL TARTRATE 25 MG TAB PO SCH (22:00)
[2025-05-17] MEDS ORDERED: ATORVASTATIN 20 MG TAB PO SCH (22:00)
[2025-05-17] MEDS ORDERED: DOXYCYCLINE 100 MG TAB/CAP PO SCH (22:00)
[2025-05-17] MEDS ORDERED: InsuLIN REG 1unit/0.01ml Soln (100units/ml) SC SCH (22:00)
[2025-05-18] MEDS ORDERED: LACTULOSE 20Gm/30ML SOLN PO SCH (10:00)
[2025-05-18] MEDS ORDERED: predniSONE 20 MG TAB PO SCH (10:00)
[2025-05-18] MEDS ORDERED: SPIRONOLACTONE 25 MG TAB PO SCH (10:00)
[2025-05-18] MEDS ORDERED: SACUBITRIL-VALSARTAN 24mg/26mg TAB PO SCH (10:00)
[2025-05-18] MEDS ORDERED: EMPAGLIFLOZIN 10 MG TAB PO SCH (10:00)
[2025-05-18] MEDS ORDERED: GABAPENTIN 300 MG CAP PO SCH (10:00)
[2025-05-18] MEDS ORDERED: ASPirin-EC 81 mg tab PO SCH (10:00)
== END 2025-05-17 19:30 | disposition left against medical advice (07) | DRG 194 ==
LOC: ER 02:57 → OVERFLOW 11:41 → TELE-WESTW 18:53
PROVIDERS: ADMIT Nurse Practitioner Family; ATTEND Nurse Practitioner Family
DX: I11.0 Hypertensive heart disease with heart failure (principal); I27.20 Pulmonary hypertension, unspecified; E87.1 Hypo-osmolality and hyponatremia; K70.30 Alcoholic cirrhosis of liver without ascites; I42.6 Alcoholic cardiomyopathy; E11.65 Type 2 diabetes mellitus with hyperglycemia; J44.9 Chronic obstructive pulmonary disease, unspecified; F15.10 Other stimulant abuse, uncomplicated; I50.31 Acute diastolic (congestive) heart failure; E78.5 Hyperlipidemia, unspecified; R74.01 Elevation of levels of liver transaminase levels; E11.40 Type 2 diabetes mellitus with diabetic neuropathy, unspecified; F10.20 Alcohol dependence, uncomplicated; I42.7 Cardiomyopathy due to drug and external agent; Z53.29 Procedure and treatment not carried out because of patient's decision for other reasons; Y90.9 Presence of alcohol in blood, level not specified; R79.89 Other specified abnormal findings of blood chemistry; Z99.81 Dependence on supplemental oxygen; Z95.810 Presence of automatic (implantable) cardiac defibrillator; Z90.49 Acquired absence of other specified parts of digestive tract
CPT/HCPCS: 36415; 71045; 80053; 80307; 81001; 82962; 83735; 83880; 84484; 85025; 96372; 96374; G0378; J1815